=== PATIENT | female | born 1955 | race Caucasian/White ===

== ENCOUNTER → 2020-07-04 05:00 | Outpatient (REF) | payer MEDICARE, MEDICAID, SELFPAY ==
[2020-07-04 07:42] LABS: Hematocrit 35.3 % (37-47); Hemoglobin 11.1 g/dL (12.0-15.0); Mean Corp Hgb Conc 31.4 g/dL (32-36); Mean Corpuscular Hgb 33.3 pg (27.0-32.0); Mean Platelet Vol. 9.8 fl (6.2-12.0); Platelet Count 280 K/mm3 (150-450); RBC Distribution Width CV 13.2 % (11.6-14.6); RBC Distribution Width SD 51.6 fl (35.1-43.9); Red Blood Count 3.33 M/mm3 (4.2-5.4); White Blood Count 4.5 K/mm3 (4.4-11.0)
[2020-07-04 08:11] LABS: ALB/GLOB Ratio 0.9 RATIO (0.9-2.4); AST(SGOT) 15 U/L (15-37); Alanine Aminotransfer ALT/SGPT 26 U/L (13-56); Albumin, Serum 3.1 g/dL (3.2-5.0); Alkaline Phosphatase 56 U/L (45-117); Anion Gap 5 (5-15); BUN 16 mg/dL (7-18); BUN/Creat Ratio 21.7 RATIO (10-20); Bilirubin, Direct 0.06 mg/dL (0.00-0.30); Calcium,Total 9.1 mg/dL (8.5-10.1); Chloride 113 mmol/L (98-107); Cholesterol 187 mg/dL (200); Creatinine, Serum 0.74 mg/dL (0.55-1.02); EST Glomerular Filtration Rate 85 mL/min (>60); Est Glom Filt Rate - Afr Amer 103 mL/min (>60); Globulin 3.4 g/dL (2.2-4.2); Glucose 77 mg/dL (74-106); High Density Lipoprotein 67 mg/dL; Lipase 191 U/L (73-393); Protein, Total 6.5 g/dL (6.4-8.2); Sodium Level 142 mmol/L (136-145); Thyroid Stim Hormone (TSH) 1.45 uIU/mL (0.358-3.74); Triglycerides 96 mg/dL; Very Low Density Lipoprotein 19 mg/dL (5-40)
[2020-07-05 16:08] LABS: Endomysial Antibody IgA Negative (Negative)
[2020-07-05 20:00] LABS: Immunoglobulin A 204 mg/dL (87-352); t-Transglutaminase IgA <2 U/mL (0-3)
== END ==
LOC: OLS.ACW100 05:00
PROVIDERS: Visit Provider Family Medicine
DX: G35 Multiple sclerosis (principal); R41.82 Altered mental status, unspecified; M62.81 Muscle weakness (generalized); R26.81 Unsteadiness on feet; E03.9 Hypothyroidism, unspecified; F25.0 Schizoaffective disorder, bipolar type; R19.7 Diarrhea, unspecified
CPT/HCPCS: 36415; 80053; 80061; 82248; 82274; 82784; 83516; 83630; 83690; 84443; 85027; 86255; 87177; 87209; 87493; 87506

== ENCOUNTER → 2020-08-17 10:56 | Outpatient (REF) | payer MEDICARE, MEDICAID, SELFPAY | LOC: OLS.ACW100 10:56 | PROVIDERS: Visit Provider Family Medicine | DX: Z03.818 Encounter for observation for suspected exposure to other biological agents ruled out (principal) | CPT/HCPCS: 87635; U0003 ==

== ENCOUNTER → 2020-08-23 12:03 | Outpatient (REF) | payer MEDICARE, MEDICAID, SELFPAY | LOC: OLS.ACW100 12:03 | PROVIDERS: Referring Provider Family Medicine; Visit Provider Family Medicine | DX: Z03.818 Encounter for observation for suspected exposure to other biological agents ruled out (principal) | CPT/HCPCS: 87635; U0003 ==

== ENCOUNTER → 2020-09-10 05:00 | Outpatient (REF) | payer MEDICARE, MEDICAID, SELFPAY | LOC: OLS.ACW100 05:00 | PROVIDERS: Referring Provider Family Medicine; Visit Provider Family Medicine | DX: Z03.818 Encounter for observation for suspected exposure to other biological agents ruled out (principal); G35 Multiple sclerosis; R41.82 Altered mental status, unspecified; M62.81 Muscle weakness (generalized); R26.81 Unsteadiness on feet; E03.9 Hypothyroidism, unspecified; F25.0 Schizoaffective disorder, bipolar type | CPT/HCPCS: 87635; U0003 ==

== ENCOUNTER → 2020-10-10 13:34 | Outpatient (REF) | payer MEDICARE, MEDICAID, SELFPAY | LOC: OLS.ACW100 13:34 | PROVIDERS: Referring Provider Family Medicine; Visit Provider Family Medicine | DX: Z03.818 Encounter for observation for suspected exposure to other biological agents ruled out (principal) | CPT/HCPCS: 87635; U0003 ==

== ENCOUNTER → 2020-11-09 05:00 | Outpatient (REF) | payer MEDICARE, MEDICAID, SELFPAY | LOC: OLS.ACW100 05:00 | PROVIDERS: Visit Provider Family Medicine | DX: G35 Multiple sclerosis (principal); U07.1 COVID-19; R41.82 Altered mental status, unspecified; M62.81 Muscle weakness (generalized); R26.81 Unsteadiness on feet; R41.841 Cognitive communication deficit | CPT/HCPCS: 36415; 80178 ==

== ENCOUNTER → 2020-12-31 05:00 | Outpatient (REF) | payer MEDICARE, MEDICAID, SELFPAY ==
[2020-12-31 08:28] LABS: Cholesterol 201 mg/dL (200); High Density Lipoprotein 65 mg/dL; Triglycerides 114 mg/dL; Very Low Density Lipoprotein 23 mg/dL (5-40)
== END ==
LOC: OLS.ACW100 05:00
PROVIDERS: Referring Provider Family Medicine; Visit Provider Family Medicine
DX: G35 Multiple sclerosis (principal); R41.82 Altered mental status, unspecified; M62.81 Muscle weakness (generalized); R26.81 Unsteadiness on feet; R41.841 Cognitive communication deficit; R27.9 Unspecified lack of coordination; Z13.220 Encounter for screening for lipoid disorders
CPT/HCPCS: 36415; 80061

== ENCOUNTER → 2021-02-07 05:00 | Outpatient (REF) | payer MEDICARE, MEDICAID, SELFPAY | LOC: OLS.ACW100 05:00 | PROVIDERS: Referring Provider Family Medicine; Visit Provider Family Medicine | DX: G35 Multiple sclerosis (principal); U07.1 COVID-19; R41.82 Altered mental status, unspecified; M62.81 Muscle weakness (generalized); R26.81 Unsteadiness on feet; R41.841 Cognitive communication deficit | CPT/HCPCS: 36415; 80178 ==

== ENCOUNTER → 2021-04-17 05:00 | Outpatient (REF) | payer MEDICARE, MEDICAID, SELFPAY ==
[2021-04-17 08:09] LABS: Hematocrit 41.5 % (37-47); Hemoglobin 12.9 g/dL (12.0-15.0); Mean Corp Hgb Conc 31.1 g/dL (32-36); Mean Corpuscular Hgb 30.9 pg (27.0-32.0); Mean Corpuscular Volume 99.3 fL (81-99); Mean Platelet Vol. 11.4 fl (6.2-12.0); Platelet Count 201 K/mm3 (150-450); RBC Distribution Width CV 13.2 % (11.6-14.6); RBC Distribution Width SD 48.1 fl (35.1-43.9); Red Blood Count 4.18 M/mm3 (4.2-5.4); White Blood Count 7.6 K/mm3 (4.4-11.0)
[2021-04-17 08:23] LABS: AST(SGOT) 35 U/L (15-37); Alanine Aminotransfer ALT/SGPT 52 U/L (13-56); Albumin, Serum 3.3 g/dL (3.2-5.0); Alkaline Phosphatase 88 U/L (45-117); Anion Gap 4 (5-15); BUN 15 mg/dL (7-18); BUN/Creat Ratio 14.7 RATIO (10-20); Bilirubin, Direct 0.14 mg/dL (0.00-0.30); Chloride 108 mmol/L (98-107); Creatinine, Serum 1.02 mg/dL (0.55-1.02); EST Glomerular Filtration Rate 58 mL/min (>60); Est Glom Filt Rate - Afr Amer 70 mL/min (>60); Glucose 73 mg/dL (74-106); Potassium 4.3 mmol/L (3.5-5.1); Protein, Total 7.3 g/dL (6.4-8.2); Sodium Level 141 mmol/L (136-145)
== END ==
LOC: OLS.ACW100 05:00
PROVIDERS: Visit Provider Family Medicine
DX: G35 Multiple sclerosis (principal); R41.82 Altered mental status, unspecified; M62.81 Muscle weakness (generalized); R26.81 Unsteadiness on feet; R41.841 Cognitive communication deficit; R27.9 Unspecified lack of coordination
CPT/HCPCS: 36415; 80048; 80076; 85027

== ENCOUNTER → 2021-05-09 05:00 | Outpatient (REF) | payer MEDICARE, MEDICAID, SELFPAY | LOC: OLS.ACW100 05:00 | PROVIDERS: Referring Provider Family Medicine; Visit Provider Family Medicine | DX: G35 Multiple sclerosis (principal); U07.1 COVID-19; R41.82 Altered mental status, unspecified; M62.81 Muscle weakness (generalized); R26.81 Unsteadiness on feet; R41.841 Cognitive communication deficit | CPT/HCPCS: 36415; 80178 ==

== ENCOUNTER → 2021-06-04 19:30 | Outpatient (REF) | payer MEDICARE, MEDICAID, SELFPAY ==
[2021-06-04 20:40] LABS: Color, Urine Yellow (Yellow); Glucose, Dipstick Normal (Normal); Ketone-Dipstick Negative (Negative); Leukocyte Esterase-Dipstick 500 /ul (Negative); Nitrite-Dipstick Positive (Negative); Occult Blood-Urine 25 /ul (Negative); Protein-Dipstick 15 mg/dl (Negative); Urine Bilirubin Dipstick Negative (Negative); Urine Clarity Sl. Cloudy (Clear); Urine Urobilinogen Normal (Normal); Urine pH 6.5 (5.0 - 8.0)
[2021-06-04 20:42] LABS: Hematocrit 43.9 % (37-47); Hemoglobin 13.6 g/dL (12.0-15.0); Mean Corpuscular Hgb 31.9 pg (27.0-32.0); Mean Corpuscular Volume 102.8 fL (81-99); Mean Platelet Vol. 11.3 fl (6.2-12.0); Platelet Count 282 K/mm3 (150-450); RBC Distribution Width CV 15.5 % (11.6-14.6); RBC Distribution Width SD 59.4 fl (35.1-43.9); Red Blood Count 4.27 M/mm3 (4.2-5.4); White Blood Count 9.9 K/mm3 (4.4-11.0)
[2021-06-04 20:48] LABS: Anion Gap 7 (5-15); BUN 36 mg/dL (7-18); BUN/Creat Ratio 25.2 RATIO (10-20); Calcium,Total 10.1 mg/dL (8.5-10.1); Chloride 122 mmol/L (98-107); Creatinine, Serum 1.43 mg/dL (0.55-1.02); EST Glomerular Filtration Rate 39 mL/min (>60); Est Glom Filt Rate - Afr Amer 48 mL/min (>60); Glucose 210 mg/dL (74-106); Potassium 3.1 mmol/L (3.5-5.1); Sodium Level 153 mmol/L (136-145)
== END ==
LOC: OLS.ACW100 19:30
PROVIDERS: Visit Provider Family Medicine
DX: R41.82 Altered mental status, unspecified (principal); G35 Multiple sclerosis; M62.81 Muscle weakness (generalized); R26.81 Unsteadiness on feet; R41.841 Cognitive communication deficit; R27.9 Unspecified lack of coordination
CPT/HCPCS: 36415; 80048; 80178; 81002; 85027; 87077; 87086; 87088; 87186

== ENCOUNTER → 2021-06-06 05:00 | Outpatient (REF) | payer MEDICARE, MEDICAID, SELFPAY | LOC: OLS.ACW100 05:00 | PROVIDERS: Visit Provider Family Medicine | DX: G35 Multiple sclerosis (principal); R41.82 Altered mental status, unspecified; M62.81 Muscle weakness (generalized); R26.81 Unsteadiness on feet; R41.841 Cognitive communication deficit; R27.9 Unspecified lack of coordination | CPT/HCPCS: 36415; 80178 ==

== ENCOUNTER → 2021-06-08 08:00 | Outpatient (REF) | payer MEDICARE, MEDICAID, SELFPAY ==
[2021-06-08 08:55] LABS: Anion Gap 4 (5-15); BUN 23 mg/dL (7-18); BUN/Creat Ratio 18.3 RATIO (10-20); Calcium,Total 9.8 mg/dL (8.5-10.1); Creatinine, Serum 1.26 mg/dL (0.55-1.02); EST Glomerular Filtration Rate 46 mL/min (>60); Est Glom Filt Rate - Afr Amer 55 mL/min (>60); Glucose 143 mg/dL (74-106); Potassium 3.9 mmol/L (3.5-5.1)
[2021-06-08 10:16] LABS: Sodium Level 162 mmol/L (136-145)
[2021-06-08 10:17] LABS: Chloride 130 mmol/L (98-107)
== END ==
LOC: OLS.ACW200 08:00
PROVIDERS: Visit Provider Family Medicine
DX: G35 Multiple sclerosis (principal); R41.82 Altered mental status, unspecified; M62.81 Muscle weakness (generalized); R26.81 Unsteadiness on feet; R41.841 Cognitive communication deficit; R27.9 Unspecified lack of coordination; F25.0 Schizoaffective disorder, bipolar type
CPT/HCPCS: 36415; 80048; 80178

== ENCOUNTER → 2021-06-10 05:00 | Outpatient (REF) | payer MEDICARE, MEDICAID, SELFPAY ==
[2021-06-10 08:55] LABS: Anion Gap 5 (5-15); BUN 9 mg/dL (7-18); BUN/Creat Ratio 8.9 RATIO (10-20); Chloride 129 mmol/L (98-107); Creatinine, Serum 1.01 mg/dL (0.55-1.02); EST Glomerular Filtration Rate 59 mL/min (>60); Est Glom Filt Rate - Afr Amer 71 mL/min (>60); Glucose 100 mg/dL (74-106); Potassium 3.3 mmol/L (3.5-5.1); Sodium Level 158 mmol/L (136-145)
[2021-06-10 09:18] LABS: Lithium < 0.20 mmol/L (0.60-1.20)
== END ==
LOC: OLS.ACW200 05:00
PROVIDERS: Visit Provider Family Medicine
DX: G35 Multiple sclerosis (principal); F25.0 Schizoaffective disorder, bipolar type; E03.9 Hypothyroidism, unspecified
CPT/HCPCS: 36415; 80048; 80178

== ENCOUNTER → 2021-07-03 05:00 | Outpatient (REF) | payer MEDICARE, MEDICAID, SELFPAY ==
[2021-07-03 09:28] LABS: Cholesterol 124 mg/dL (200); High Density Lipoprotein 61 mg/dL; Triglycerides 101 mg/dL; Very Low Density Lipoprotein 20 mg/dL (5-40)
== END ==
LOC: OLS.ACW100 05:00
PROVIDERS: Visit Provider Family Medicine
DX: E78.00 Pure hypercholesterolemia, unspecified (principal); G35 Multiple sclerosis; R41.82 Altered mental status, unspecified; M62.81 Muscle weakness (generalized); R26.81 Unsteadiness on feet; R41.841 Cognitive communication deficit; R27.9 Unspecified lack of coordination
CPT/HCPCS: 36415; 80061

== ENCOUNTER → 2021-09-24 05:00 | Outpatient (REF) | payer MEDICARE, MEDICAID, SELFPAY ==
[2021-09-24 09:01] LABS: Hematocrit 33.3 % (37-47); Hemoglobin 10.4 g/dL (12.0-15.0); Mean Corp Hgb Conc 31.2 g/dL (32-36); Mean Corpuscular Hgb 30.1 pg (27.0-32.0); Mean Corpuscular Volume 96.2 fL (81-99); Mean Platelet Vol. 10.6 fl (6.2-12.0); Platelet Count 266 K/mm3 (150-450); RBC Distribution Width CV 13.8 % (11.6-14.6); RBC Distribution Width SD 48.9 fl (35.1-43.9); Red Blood Count 3.46 M/mm3 (4.2-5.4); White Blood Count 4.2 K/mm3 (4.4-11.0)
[2021-09-24 09:26] LABS: ALB/GLOB Ratio 0.5 RATIO (0.9-2.4); AST(SGOT) 22 U/L (15-37); Alanine Aminotransfer ALT/SGPT 32 U/L (13-56); Albumin, Serum 2.4 g/dL (3.2-5.0); Alkaline Phosphatase 63 U/L (45-117); Anion Gap 7 (5-15); BUN 16 mg/dL (7-18); BUN/Creat Ratio 17.5 RATIO (10-20); Calcium,Total 9.2 mg/dL (8.5-10.1); Chloride 110 mmol/L (98-107); Cholesterol 112 mg/dL (200); Creatinine, Serum 0.92 mg/dL (0.55-1.02); EST Glomerular Filtration Rate 66 mL/min (>60); Est Glom Filt Rate - Afr Amer 80 mL/min (>60); Globulin 4.4 g/dL (2.2-4.2); Glucose 116 mg/dL (74-106); High Density Lipoprotein 66 mg/dL; Magnesium 2.1 mg/dL (1.6-2.6); Potassium 3.4 mmol/L (3.5-5.1); Protein, Total 6.8 g/dL (6.4-8.2); Sodium Level 142 mmol/L (136-145); Thyroid Stim Hormone (TSH) 0.77 uIU/mL (0.358-3.74); Triglycerides 69 mg/dL; Very Low Density Lipoprotein 14 mg/dL (5-40)
[2021-09-24 09:29] LABS: Vitamin D,25 Hydroxy 54.5 ng/mL
== END ==
LOC: OLS.ACW100 05:00
PROVIDERS: Visit Provider Family Medicine
DX: G35 Multiple sclerosis (principal); R41.82 Altered mental status, unspecified; M62.81 Muscle weakness (generalized); R26.81 Unsteadiness on feet; R41.841 Cognitive communication deficit; E55.9 Vitamin D deficiency, unspecified; E03.9 Hypothyroidism, unspecified; R27.9 Unspecified lack of coordination
CPT/HCPCS: 36415; 80053; 80061; 82306; 83735; 84443; 85027

== ENCOUNTER → 2021-12-31 | Outpatient (REF) | payer MEDICARE, MEDICAID, SELFPAY ==
[2021-12-31 07:16] LABS: Cholesterol 121 mg/dL (200); High Density Lipoprotein 74 mg/dL; Triglycerides 80 mg/dL; Very Low Density Lipoprotein 16 mg/dL (5-40)
== END | disposition home or self-care (01) ==
LOC: OLS.ACW100 05:00
PROVIDERS: Visit Provider Family Medicine
DX: G35 Multiple sclerosis (principal); R53.1 Weakness; M62.81 Muscle weakness (generalized); R26.81 Unsteadiness on feet; R41.841 Cognitive communication deficit; R27.9 Unspecified lack of coordination
CPT/HCPCS: 36415; 80061

== ENCOUNTER → 2022-03-13 | Outpatient (REF) | payer MEDICARE, MEDICAID, SELFPAY ==
[2022-03-13 09:13] LABS: Hematocrit 34.6 % (37-47); Hemoglobin 10.7 g/dL (12.0-15.0); Mean Corp Hgb Conc 30.9 g/dL (32-36); Mean Corpuscular Hgb 30.3 pg (27.0-32.0); Mean Platelet Vol. 10.6 fl (6.2-12.0); Platelet Count 249 K/mm3 (150-450); RBC Distribution Width CV 15.2 % (11.6-14.6); RBC Distribution Width SD 54.4 fl (35.1-43.9); Red Blood Count 3.53 M/mm3 (4.2-5.4)
[2022-03-13 09:45] LABS: ALB/GLOB Ratio 0.7 RATIO (0.9-2.4); AST(SGOT) 19 U/L (15-37); Alanine Aminotransfer ALT/SGPT 38 U/L (13-56); Albumin, Serum 2.9 g/dL (3.2-5.0); Alkaline Phosphatase 70 U/L (45-117); Anion Gap 6 (5-15); BUN 16 mg/dL (7-18); BUN/Creat Ratio 14.7 RATIO (10-20); Chloride 112 mmol/L (98-107); Cholesterol 123 mg/dL (200); Creatinine, Serum 1.09 mg/dL (0.55-1.02); EST Glomerular Filtration Rate 54 mL/min (>60); Est Glom Filt Rate - Afr Amer 65 mL/min (>60); Globulin 4.1 g/dL (2.2-4.2); Glucose 80 mg/dL (74-106); High Density Lipoprotein 72 mg/dL; Potassium 4.2 mmol/L (3.5-5.1); Sodium Level 144 mmol/L (136-145); Thyroid Stim Hormone (TSH) 1.33 uIU/mL (0.358-3.74); Triglycerides 75 mg/dL; Very Low Density Lipoprotein 15 mg/dL (5-40)
== END | disposition home or self-care (01) ==
LOC: OLS.ACW100 05:00
PROVIDERS: Referring Provider Family Medicine; Visit Provider Family Medicine
DX: G35 Multiple sclerosis (principal); R41.82 Altered mental status, unspecified; M62.81 Muscle weakness (generalized); R26.81 Unsteadiness on feet; R41.841 Cognitive communication deficit; R27.9 Unspecified lack of coordination
CPT/HCPCS: 36415; 80053; 80061; 84443; 85027

== ENCOUNTER → 2022-07-03 | Outpatient (REF) | payer MEDICARE, MEDICAID, SELFPAY ==
[2022-07-03 10:23] LABS: Cholesterol 143 mg/dL (200); High Density Lipoprotein 78 mg/dL; Triglycerides 113 mg/dL; Very Low Density Lipoprotein 23 mg/dL (5-40)
== END ==
LOC: OLS.ACW100 05:00
PROVIDERS: Visit Provider Family Medicine
DX: E78.00 Pure hypercholesterolemia, unspecified (principal); G35 Multiple sclerosis; R53.1 Weakness; R41.82 Altered mental status, unspecified; M62.81 Muscle weakness (generalized); R26.81 Unsteadiness on feet; R41.841 Cognitive communication deficit; R27.9 Unspecified lack of coordination
CPT/HCPCS: 36415; 80061

== ENCOUNTER → 2022-08-11 | Outpatient (REF) | payer MEDICARE, MEDICAID, SELFPAY ==
[2022-08-16 08:12] LABS: HEPATITIS B SURFACE AG Negative (Negative); Hep C Antibodies <0.1 s/co ratio (0.0-0.9); Hepatitis A IgM Antibody Negative (Negative); Hepatitis B Core AB IgM Negative (Negative)
[2022-08-16 09:30] LABS: V-Zoster IgG (Immunity) 1065 index (Immune >165)
== END ==
LOC: OLS.ACW100 05:00
PROVIDERS: Visit Provider Family Medicine
DX: G35 Multiple sclerosis (principal); R53.1 Weakness; R41.82 Altered mental status, unspecified; M62.81 Muscle weakness (generalized); R26.81 Unsteadiness on feet; R41.841 Cognitive communication deficit; R27.9 Unspecified lack of coordination
CPT/HCPCS: 36415; 80074; 86787; 87798

== ENCOUNTER → 2022-10-02 | Outpatient (REF) | payer MEDICARE, MEDICAID, SELFPAY ==
[2022-10-02 10:04] LABS: Absolute Lymphocyte Count 1.73 X10^3/uL (0.83-4.51); Absolute Neutrophil Count 2.6 X10^3/uL (2.0-7.7); Basophil# 0.04 X10^3/uL; Basophil% 0.8 % (0-1); Eosinophils% 2.1 % (0-5); Hematocrit 39.3 % (37-47); Hemoglobin 11.9 g/dL (12.0-15.0); Lymphocyte # 1.73 X10^3/ul (0.83-4.51); Lymphocyte % 35.8 % (19-41); Mean Corp Hgb Conc 30.3 g/dL (32-36); Mean Corpuscular Hgb 30.4 pg (27.0-32.0); Mean Corpuscular Volume 100.3 fL (81-99); Mean Platelet Vol. 11.3 fl (6.2-12.0); Monocyte# 0.35 X10^3/uL; Monocyte% 7.2 % (0-10); NRBC Flagged by Analyzer 0.4 % (0-5); Neutrophil # 2.58 X10^3/uL (2.7-7.7); Neutrophil % 53.5 % (47-70); Platelet Count 231 K/mm3 (150-450); RBC Distribution Width CV 15.5 % (11.6-14.6); RBC Distribution Width SD 57.2 fl (35.1-43.9); Red Blood Count 3.92 M/mm3 (4.2-5.4); White Blood Count 4.8 K/mm3 (4.4-11.0)
[2022-10-02 10:16] LABS: ALB/GLOB Ratio 0.7 RATIO (0.9-2.4); AST(SGOT) 20 U/L (15-37); Alanine Aminotransfer ALT/SGPT 39 U/L (13-56); Alkaline Phosphatase 74 U/L (45-117); Anion Gap 6 (5-15); BUN 20 mg/dL (7-18); BUN/Creat Ratio 16.5 RATIO (10-20); Calcium,Total 9.4 mg/dL (8.5-10.1); Chloride 108 mmol/L (98-107); Creatinine, Serum 1.21 mg/dL (0.55-1.02); EST Glomerular Filtration Rate 48 mL/min (>60); Est Glom Filt Rate - Afr Amer 57 mL/min (>60); Globulin 4.3 g/dL (2.2-4.2); Glucose 68 mg/dL (74-106); Potassium 4.6 mmol/L (3.5-5.1); Protein, Total 7.3 g/dL (6.4-8.2); Sodium Level 143 mmol/L (136-145)
== END ==
LOC: OLS.ACW100 06:50
PROVIDERS: Visit Provider Family Medicine
DX: G35 Multiple sclerosis (principal); R53.1 Weakness; R41.82 Altered mental status, unspecified; M62.81 Muscle weakness (generalized); R26.81 Unsteadiness on feet; R41.841 Cognitive communication deficit; R27.9 Unspecified lack of coordination
CPT/HCPCS: 36415; 80053; 85025

== ENCOUNTER → 2022-12-08 | Outpatient (REF) | payer MEDICARE, MEDICAID, SELFPAY ==
[2022-12-08 09:14] LABS: Hematocrit 39.3 % (37-47); Hemoglobin 11.8 g/dL (12.0-15.0); Mean Corpuscular Hgb 31.8 pg (27.0-32.0); Mean Corpuscular Volume 105.9 fL (81-99); Mean Platelet Vol. 10.5 fl (6.2-12.0); Platelet Count 226 K/mm3 (150-450); RBC Distribution Width CV 15.1 % (11.6-14.6); RBC Distribution Width SD 58.8 fl (35.1-43.9); Red Blood Count 3.71 M/mm3 (4.2-5.4); White Blood Count 4.9 K/mm3 (4.4-11.0)
[2022-12-08 09:43] LABS: Vitamin D,25 Hydroxy 41.5 ng/mL
[2022-12-08 10:19] LABS: Anion Gap 11 (5-15); BUN 17 mg/dL (7-18); BUN/Creat Ratio 14.9 RATIO (10-20); Calcium,Total 9.2 mg/dL (8.5-10.1); Chloride 113 mmol/L (98-107); Cholesterol 125 mg/dL (200); Creatinine, Serum 1.14 mg/dL (0.55-1.02); EST Glomerular Filtration Rate 51 mL/min (>60); Est Glom Filt Rate - Afr Amer 62 mL/min (>60); Glucose 62 mg/dL (74-106); High Density Lipoprotein 65 mg/dL; Potassium 4.7 mmol/L (3.5-5.1); Sodium Level 143 mmol/L (136-145); Thyroid Stim Hormone (TSH) 4.14 uIU/mL (0.358-3.74); Triglycerides 153 mg/dL; Very Low Density Lipoprotein 31 mg/dL (5-40)
[2022-12-08 10:29] LABS: Hemoglobin A1c 5.9 % (3.8-5.6)
== END | disposition home or self-care (01) ==
LOC: OLS.ACW100 05:00
PROVIDERS: Visit Provider Family Medicine
DX: G35 Multiple sclerosis (principal); R53.1 Weakness; R41.82 Altered mental status, unspecified; M62.81 Muscle weakness (generalized); R26.81 Unsteadiness on feet; R41.841 Cognitive communication deficit; R27.9 Unspecified lack of coordination
CPT/HCPCS: 36415; 80048; 80061; 82306; 83036; 84443; 85027

== ENCOUNTER → 2022-12-18 | Outpatient (REF) | payer MEDICARE, MEDICAID, SELFPAY ==
[2022-12-18 08:48] LABS: Absolute Lymphocyte Count 1.38 X10^3/uL (0.83-4.51); Absolute Neutrophil Count 2.9 X10^3/uL (2.0-7.7); Basophil# 0.03 X10^3/uL; Basophil% 0.6 % (0-1); Eosinophil# 0.15 X10^3/uL; Hematocrit 35.4 % (37-47); Hemoglobin 10.9 g/dL (12.0-15.0); Lymphocyte # 1.38 X10^3/ul (0.83-4.51); Lymphocyte % 27.9 % (19-41); Mean Corp Hgb Conc 30.8 g/dL (32-36); Mean Corpuscular Hgb 31.1 pg (27.0-32.0); Mean Corpuscular Volume 100.9 fL (81-99); Mean Platelet Vol. 10.3 fl (6.2-12.0); Monocyte# 0.49 X10^3/uL; Monocyte% 9.9 % (0-10); NRBC Flagged by Analyzer 0 % (0-5); Neutrophil # 2.87 X10^3/uL (2.7-7.7); Platelet Count 267 K/mm3 (150-450); RBC Distribution Width CV 14.7 % (11.6-14.6); RBC Distribution Width SD 54.7 fl (35.1-43.9); Red Blood Count 3.51 M/mm3 (4.2-5.4)
[2022-12-18 08:53] LABS: Valproic Acid (Depakene) Level 27 ug/mL (50-100)
[2022-12-18 09:02] LABS: ALB/GLOB Ratio 0.7 RATIO (0.9-2.4); AST(SGOT) 16 U/L (15-37); Alanine Aminotransfer ALT/SGPT 27 U/L (13-56); Albumin, Serum 2.6 g/dL (3.2-5.0); Alkaline Phosphatase 58 U/L (45-117); Anion Gap 7 (5-15); BUN 24 mg/dL (7-18); BUN/Creat Ratio 20.2 RATIO (10-20); Calcium,Total 8.9 mg/dL (8.5-10.1); Chloride 108 mmol/L (98-107); Cholesterol 122 mg/dL (200); Creatinine, Serum 1.19 mg/dL (0.55-1.02); EST Glomerular Filtration Rate 48 mL/min (>60); Est Glom Filt Rate - Afr Amer 59 mL/min (>60); Globulin 3.8 g/dL (2.2-4.2); Glucose 74 mg/dL (74-106); High Density Lipoprotein 68 mg/dL; Potassium 4.2 mmol/L (3.5-5.1); Protein, Total 6.4 g/dL (6.4-8.2); Sodium Level 143 mmol/L (136-145); Triglycerides 73 mg/dL; Very Low Density Lipoprotein 15 mg/dL (5-40)
[2022-12-18 09:19] LABS: Hemoglobin A1c 5.8 % (3.8-5.6)
[2022-12-19 04:07] LABS: Immunoglobulin A 399 mg/dL (87-352); Immunoglobulin G 1164 mg/dL (586-1602)
[2022-12-19 17:21] LABS: Immunoglobulin M 53 mg/dL (26-217)
== END ==
LOC: OLS.ACW100 05:00
PROVIDERS: Visit Provider Family Medicine
DX: G35 Multiple sclerosis (principal); R41.82 Altered mental status, unspecified; M62.81 Muscle weakness (generalized); R26.81 Unsteadiness on feet; R41.841 Cognitive communication deficit; R27.9 Unspecified lack of coordination; Z79.899 Other long term (current) drug therapy
CPT/HCPCS: 36415; 80053; 80061; 80164; 82784; 83036; 85025

== ENCOUNTER → 2023-01-12 | Outpatient (REF) | payer MEDICARE, MEDICAID, SELFPAY ==
[2023-01-12 09:10] LABS: Thyroid Stim Hormone (TSH) 3.69 uIU/mL (0.358-3.74)
== END ==
LOC: OLS.ACW100 04:00
PROVIDERS: Referring Provider Family Medicine; Visit Provider Family Medicine
DX: G35 Multiple sclerosis (principal); R53.1 Weakness; R41.82 Altered mental status, unspecified; M62.81 Muscle weakness (generalized); R26.81 Unsteadiness on feet; R41.841 Cognitive communication deficit; R27.9 Unspecified lack of coordination; Z79.899 Other long term (current) drug therapy
CPT/HCPCS: 36415; 84443

== ENCOUNTER → 2023-03-02 | Outpatient (REF) | payer MEDICARE, MEDICAID, SELFPAY ==
[2023-03-02 09:13] LABS: Valproic Acid (Depakene) Level 38 ug/mL (50-100)
== END ==
LOC: OLS.ACW100 05:00
PROVIDERS: Visit Provider Family Medicine
DX: G35 Multiple sclerosis (principal); R53.1 Weakness; R41.82 Altered mental status, unspecified; M62.81 Muscle weakness (generalized); R26.81 Unsteadiness on feet; R41.841 Cognitive communication deficit; R27.9 Unspecified lack of coordination
CPT/HCPCS: 36415; 80164

== ENCOUNTER → 2023-04-17 | Outpatient (REF) | payer MEDICARE, MEDICAID, SELFPAY ==
[2023-04-17 08:26] LABS: Creatinine, Serum 1.28 mg/dL (0.55-1.02); EST Glomerular Filtration Rate 44 mL/min (>60); Est Glom Filt Rate - Afr Amer 54 mL/min (>60)
== END ==
LOC: OLS.ACW100 05:00
PROVIDERS: Visit Provider Family Medicine
DX: G35 Multiple sclerosis (principal); R53.1 Weakness; R41.82 Altered mental status, unspecified; M62.81 Muscle weakness (generalized); R26.81 Unsteadiness on feet; R41.841 Cognitive communication deficit; R27.9 Unspecified lack of coordination
CPT/HCPCS: 36415; 82565

== ENCOUNTER → 2023-05-27 | Outpatient (REF) | payer MEDICARE, MEDICAID, SELFPAY ==
[2023-05-27 09:10] LABS: Hematocrit 39.4 % (37-47); Hemoglobin 12.5 g/dL (12.0-15.0); Mean Corp Hgb Conc 31.7 g/dL (32-36); Mean Corpuscular Hgb 32.1 pg (27.0-32.0); Mean Platelet Vol. 10.7 fl (6.2-12.0); Platelet Count 242 K/mm3 (150-450); RBC Distribution Width CV 14.5 % (11.6-14.6); RBC Distribution Width SD 53.5 fl (35.1-43.9)
[2023-05-27 09:34] LABS: ALB/GLOB Ratio 0.7 RATIO (0.9-2.4); AST(SGOT) 33 U/L (15-37); Alanine Aminotransfer ALT/SGPT 40 U/L (13-56); Albumin, Serum 3.2 g/dL (3.2-5.0); Alkaline Phosphatase 62 U/L (45-117); Anion Gap 4 (5-15); BUN 23 mg/dL (7-18); BUN/Creat Ratio 19.8 RATIO (10-20); Calcium,Total 9.3 mg/dL (8.5-10.1); Chloride 113 mmol/L (98-107); Creatinine, Serum 1.16 mg/dL (0.55-1.02); EST Glomerular Filtration Rate 50 mL/min (>60); Est Glom Filt Rate - Afr Amer 60 mL/min (>60); Globulin 4.3 g/dL (2.2-4.2); Glucose 67 mg/dL (74-106); Potassium 4.1 mmol/L (3.5-5.1); Protein, Total 7.5 g/dL (6.4-8.2); Sodium Level 143 mmol/L (136-145)
[2023-05-31 01:06] LABS: Immunoglobulin A 406 mg/dL (87-352); Immunoglobulin E 7 IU/mL (6-495); Immunoglobulin G 1286 mg/dL (586-1602); Immunoglobulin M 37 mg/dL (26-217)
== END ==
LOC: OLS.ACW100 05:00
PROVIDERS: Visit Provider Family Medicine
DX: G35 Multiple sclerosis (principal); R53.1 Weakness; R41.82 Altered mental status, unspecified; M62.81 Muscle weakness (generalized); R26.81 Unsteadiness on feet; R41.841 Cognitive communication deficit
CPT/HCPCS: 36415; 80053; 82784; 82785; 85027

== ENCOUNTER → 2023-06-02 | Outpatient (REF) | payer MEDICARE, MEDICAID, SELFPAY ==
[2023-06-02 10:34] LABS: Cholesterol 135 mg/dL (200); High Density Lipoprotein 63 mg/dL; Triglycerides 122 mg/dL; Very Low Density Lipoprotein 24 mg/dL (5-40)
[2023-06-02 10:53] LABS: Valproic Acid (Depakene) Level 53 ug/mL (50-100)
[2023-06-02 11:11] LABS: Hemoglobin A1c 5.9 % (3.8-5.6)
== END ==
LOC: OLS.ACW100 05:00
PROVIDERS: Visit Provider Family Medicine
DX: G35 Multiple sclerosis (principal); R53.1 Weakness; R41.82 Altered mental status, unspecified; M62.81 Muscle weakness (generalized); R26.81 Unsteadiness on feet; R41.841 Cognitive communication deficit; Z79.899 Other long term (current) drug therapy
CPT/HCPCS: 36415; 80061; 80164; 83036

== ENCOUNTER → 2023-06-04 | Outpatient (REF) | payer MEDICARE, MEDICAID, SELFPAY ==
[2023-06-04 09:55] LABS: Hematocrit 38.4 % (37-47); Hemoglobin 12.2 g/dL (12.0-15.0); Mean Corp Hgb Conc 31.8 g/dL (32-36); Mean Corpuscular Hgb 32.2 pg (27.0-32.0); Mean Corpuscular Volume 101.3 fL (81-99); Mean Platelet Vol. 10.8 fl (6.2-12.0); Platelet Count 271 K/mm3 (150-450); RBC Distribution Width CV 14.3 % (11.6-14.6); RBC Distribution Width SD 53.7 fl (35.1-43.9); Red Blood Count 3.79 M/mm3 (4.2-5.4); White Blood Count 4.3 K/mm3 (4.4-11.0)
[2023-06-04 10:04] LABS: Vitamin D,25 Hydroxy 42.4 ng/mL
[2023-06-04 10:11] LABS: ALB/GLOB Ratio 0.7 RATIO (0.9-2.4); AST(SGOT) 25 U/L (15-37); Alanine Aminotransfer ALT/SGPT 33 U/L (13-56); Alkaline Phosphatase 66 U/L (45-117); Anion Gap 7 (5-15); BUN 15 mg/dL (7-18); BUN/Creat Ratio 11.6 RATIO (10-20); Calcium,Total 9.4 mg/dL (8.5-10.1); Chloride 109 mmol/L (98-107); Cholesterol 120 mg/dL (200); Creatinine, Serum 1.29 mg/dL (0.55-1.02); EST Glomerular Filtration Rate 44 mL/min (>60); Est Glom Filt Rate - Afr Amer 53 mL/min (>60); Globulin 4.4 g/dL (2.2-4.2); Glucose 73 mg/dL (74-106); High Density Lipoprotein 66 mg/dL; Potassium 4.4 mmol/L (3.5-5.1); Protein, Total 7.4 g/dL (6.4-8.2); Sodium Level 144 mmol/L (136-145); Triglycerides 106 mg/dL; Very Low Density Lipoprotein 21 mg/dL (5-40)
[2023-06-04 10:18] LABS: Hemoglobin A1c 5.9 % (3.8-5.6)
== END ==
LOC: OLS.ACW100 05:00
PROVIDERS: Visit Provider Family Medicine
DX: E06.9 Thyroiditis, unspecified (principal); E55.9 Vitamin D deficiency, unspecified; J96.01 Acute respiratory failure with hypoxia; R41.841 Cognitive communication deficit; M62.81 Muscle weakness (generalized); I26.99 Other pulmonary embolism without acute cor pulmonale; Z79.899 Other long term (current) drug therapy
CPT/HCPCS: 36415; 80053; 80061; 82306; 83036; 84443; 85027

== ENCOUNTER → 2023-09-02 | Outpatient (REF) | payer MEDICARE, MEDICAID, SELFPAY ==
[2023-09-02 09:39] LABS: Valproic Acid (Depakene) Level 75 ug/mL (50-100)
[2023-09-04 05:09] LABS: T4 Total, Thyroxin 10.5 ug/dL (4.8-13.9); Thyroid Stim Hormone (TSH) 2.71 uIU/mL (0.358-3.74)
[2023-09-04 05:21] LABS: T3 Total - Triiodothyronine 1.41 ng/mL (0.6-1.81)
== END ==
LOC: OLS.ACW100 05:00
PROVIDERS: Visit Provider Family Medicine
DX: G35 Multiple sclerosis (principal); R53.1 Weakness; R41.82 Altered mental status, unspecified; M62.81 Muscle weakness (generalized); R26.81 Unsteadiness on feet; R41.841 Cognitive communication deficit; Z79.899 Other long term (current) drug therapy
CPT/HCPCS: 36415; 80164; 84436; 84443; 84480

== ENCOUNTER → 2023-11-25 | Outpatient (REF) | payer MEDICARE, MEDICAID, SELFPAY ==
--- OUTSIDE RECORDS SUMMARY | 2023-11-25 04:50 | XMS RPT_ITS | CCD ---
Author Name Unknown Address [address] [place] [address] Organization [facility] Care Team Providers Care Retail Sales Specialist Name Role Phone Kinjal REDD, George Callejas Primary Care Provid er Tania Kasper Attending Unavailable Shakila Flower Primary Care Unavailable PROVIDER, UNKNOWN Referring Unavailable Noble Hilton Attending Unavailable Shakila Flower Primary Care Unavailable PROVIDER, UNKNOWN Referring Unavailable NOBLE HILTON Attending Unavailable NOBLE HILTON Admitting Unavailable NOBLE HILTON Primary Care Unavailable NOBLE HILTON Attending Unavailable NOBLE HILTON Admitting Unavailable NOBLE HILTON Primary Care Unavailable Shakila Flower Primary Care Provider [phone] SHAKILA FLOWER Primary Care Unavailable NOBLE HILTON Attending Unavailable NOBLE HILTON Referring Unavailable SHAKILA FLOWER Primary Care Unavailable NOBLE HILTON Referring Unavailable NOBLE HILTON Attending Unavailable REJI JOYCE Attending Unavailable REJI JOYCE Admitting Unavailable SHAKILA FLOWER Primary Care Unavailable NOBLE HILTON Referring Unavailable NOBLE HILTON Attending Unavailable SHAKILA FLOWER Primary Care Unavailable NOBLE HILTON Referring Unavailable NOBLE HILTON Attending Unavailable SHAKILA FLOWER Primary Care Unavailable Medications Current Medications Medication Drug Class(es) Dates Sig (Normalized) Sig (Original) atorvastatin 20 mg oral tablet (14 sources) HMG-CoA Reductase Inhibitor Start: 05-06-2023 take 1 tablet by mouth at bedtime atorvastatin (Lipitor) 20 MG tablet Take 1 tablet by mouth before bedtime. Take with 40mg tab for 60mg total. 0 05/06/2023 Active Completed/Discontinued Medications Medication Drug Class(es) Dates Sig (Normalized) Sig (Original) gadobutrol (Gadavist) injection 10 mL (2 sources) Start: 05-18-2023 End: 05-18-2023 gadobutrol (Gadavist) injection 10 mL 5 ml sodium chloride 9 mg/ml injection (6 sources) Start: 05-08-2023 End: 05-08-2023 sodium chloride 0.9% (NS) flush 10 mL Problems Problem Classification Problem Date Documented Da te Episodic/Chronic Disorders of lipid metabolism (9 sources) Hyperlipidemia; Translations: [Hyperlipidemia, unspecified] Onset: 05-08-2023 05-08-2023 Chronic Mood disorders (1 source) Depressive disorder; Translations: [Depression, unspecified depression type] Chronic Multiple sclerosis (20 sources) Multiple sclerosis; Translations: [Multiple sclerosis] Onset: 11-04-2021 Chronic Other hereditary and degenerative nervous system conditions (2 sources) Degenerative disease of nervous system, unspecified; Translations: [Degenerative disease of nervous system, unspecified] Onset: 11-04-2021 Chronic Other nervous system disorders (2 sources) Other specified disorders of brain; Translations: [Other specified disorders of brain] Onset: 11-04-2021 Chronic Other screening for suspected conditions (not mental disorders or infectious disease) (2 sources) Encounter for screening for malignant neoplasm of colon; Translations: [Encounter for screening for malignant neoplasm of colon] Onset: 05-08-2023 Episodic Residual codes; unclassified (9 sources) Altered mental status; Translations: [Altered mental status, unspecified] Onset: 05-08-2023 05-08-2023 Episodic Results Test Name Value Interpretation Reference Range Facil ity Vital Signs Date Time Vital Sign Value Performing Clinician Faci lity 05-08-2023 14:32-0400 Diastolic blood pressure 97 mm[Hg] Reji Chisholm MD Work Phone: [facility] [employer] 05-08-2023 14:32-0400 Heart rate 76 /min Reji Chisholm MD Work Phone: [facility] [employer] 05-08-2023 14:32-0400 Respiratory rate 16 /min Reji Chisholm MD Work Phone: [facility] [employer] 05-08-2023 14:32-0400 SaO2% (BldA) [Mass fraction] 95 % Reji Chisholm MD Work Phone: [facility] [employer] 05-08-2023 14:32-0400 Systolic blood pressure 142 mm[Hg] Reji Chisholm MD Work Phone: [facility] [employer] 05-08-2023 14:19-0400 Body temperature 97.5 [degF] Reji Chisholm MD Work Phone: [facility] [employer] 05-08-2023 13:42-0400 Body height 157.5 cm Reji Chisholm MD Work Phone: [facility] [employer] 05-08-2023 13:42-0400 Body mass index (BMI) [Ratio] 45.73 kg/m2 Reji Chisholm MD Work Phone: [facility] [employer] 05-08-2023 13:42-0400 Body weight 113.4 kg Reji Chisholm MD Work Phone: [facility] [employer] 05-24-2022 19:24-0400 Diastolic blood pressure 92 mm[Hg] Sameer Mudrakola DO Work Phone: [facility] 05-24-2022 19:24-0400 Heart rate 86 /min Sameer Mudrakola DO Work Phone: [facility] 05-24-2022 19:24-0400 Respiratory rate 18 /min Sameer Mudrakola DO Work Phone: [facility] 05-24-2022 19:24-0400 SaO2% (BldA) [Mass fraction] 96 % Sameer Mudrakola DO Work Phone: [facility] 05-24-2022 19:24-0400 Systolic blood pressure 146 mm[Hg] Sameer Mudrakola DO Work Phone: [facility] 05-24-2022 11:07-0400 Body height 157.5 cm Sameer Mudrakola DO Work Phone: [facility] 05-24-2022 11:07-0400 Body mass index (BMI) [Ratio] 32.92 kg/m2 Sameer Mudrakola DO Work Phone: [facility] 05-24-2022 11:07-0400 Body temperature 98.4 [degF] Sameer Sherman DO Work Phone: [facility] 05-24-2022 11:07-0400 Body weight 81.65 kg Sameer Sherman DO Work Phone: [facility] Encounters Encounter Date Encounter Type Care Provider Facility Start: 05-18-2023 End: 05-19-2023 ambulatory NO[facility] Start: 05-18-2023 End: 05-18-2023 Subsequent hospital visit by physician Noble Hilton DO Work Phone: [facility] MRI Procedures Date Procedure Procedure Detail Performing Clinician Start: 05-08-2023 Colonoscopy eRji Chisholm MD Work Phone: Start: 05-24-2022 POCT COVID-19, ANTIGEN Unknown Provider Result Start: 05-24-2022 Assay of ethanol Addi Norris MD Work Phone: Start: 05-24-2022 Comprehensive metabo lic panel Addi Norris MD Work Phone: Start: 05-24-2022 Drug tst prsmv instr mnt chem analyzers pr date Addi Norris MD Work Phone: Start: 05-24-2022 Ecg routine ecg w/le ast 12 lds w/i&r Addi Norris MD Work Phone: Plan of Treatment Date Care Activity Detail Author Start: 05-08-2033 Screening for malign ant neoplasm of colon [facility] Start: 11-17-2027 DTaP/Tdap/Td vaccine (3 - Td or Tdap) DTaP/Tdap/Td vaccine (3 - Td or Tdap) [facility] Start: 11-17-2027 DTaP/Tdap/Td Vaccine s (2 - Td or Tdap) DTaP/Tdap/Td Vaccines (2 - Td or Tdap) [facility] Start: 07-03-2023 Influenza vaccination S [facility] Start: 05-18-2023 End: 05-18-2023 Patient encounter procedure [facility] Start: 05-08-2023 End: 05-08-2023 Admission to same day surgery center 05/08/2023 1:00 PM EDT - 05/08/2023 1:30 PM EDT Surgery [facility] [address] [place] [id number] Reji Joyce MD [address] [place] [address] COLONOSCOPY FOR LOW RISK SCREENING [G0121] [facility] [address] Immunizations Immunization Date Immunization Notes Care Provider Fa cility 11-28-2020 Pfizer SARS-CoV-2 Vaccination Noble Hilton DO Work Phone: [employer] 11-07-2020 Pfizer SARS-CoV-2 Vaccination Noblemichael Hilton DO Work Phone: [employer] 08-29-2019 influenza virus vacc ine, unspecified formulation Noblemichael Hilton DO Work Phone: [employer] Payers Date Payer Category Payer Medicare ANTHEM MEDICARE ADVANTAGE ANTHEM MEDIBLUE [id number] 2022-Present [address] [place] [address] Medicare HMO [id number] 2022 Medicare [id number] 2022 Medicaid [employer] MEDICAID UHC [employer] MEDICAID ONLY [id number] 2022-Present [address] [place] [address] Medicaid HMO [id number] 2021 Medicaid [id number] 2017 Medicare BS MEDICARE AN THEM MEDIBLUE ESSENTIAL/PLUS [id number] 2017-Present [address] [place] [address] [id number] 1959 Medicare [id number] 1959 Unknown [id number] 1957 Unknown [id number] 1957 Unknown [id number] 1957 Unknown [id number] 1957 Unknown [id number] Private Health Insurance Social History Date Type Detail Facility Start: 05-24-2022 Tobacco smoking stat [facility] Ex-smoker [facility] Work Phone: History of tobacco use Current smoker [facility] Work Phone: History of tobacco use Cigarette Smoker [facility] [employer] Work Phone: Start: 05-24-2022 End: 05-09-2023 Alcohol intake Ex-drinker (finding) [facility] Work Phone: Start: 05-24-2022 History SDOH Alcohol Comment former ETOH [facility] Work Phone: Start: 1955 Sex Assigned At Not on file [facility] [employer] Work Phone: Start: 05-14-2022 End: 05-18-2023 Exposure to SARS-CoV-2 (event) Not sure [employer] Work Phone: Start: 05-24-2022 End: 05-09-2023 History of Social function [facility] [employer] Start: 05-24-2022 End: 05-09-2023 Tobacco use panel [facility] Start: 04-28-2023 End: 05-08-2023 Exposure to SARS-CoV-2 (event) Unable to assess [facility] [employer] Clinical Notes 05-24-2022 to 05-08-2023 Discharge InstructionsPerioperative Nursing Note - Vicky Aparicio RN - 05/08/2023 1:54 PM EDTPerioperative Nursing Note - Vicky Aparicio RN - 05/08/2023 1:54 PM EDTDischarge InstructionsAttachments Note Date & Type Note Facility 05-08-2023 Note Patient: Janeen Diaz Procedure Summary Date: 05/08/23 Room / Location: [facility] [address] [facility] Gastroenterology Anesthesia Start: 1355 Anesthesia Stop: 141 Procedure: COLONOSCOPY FOR LOW RISK SCREENING Diagnosis: Encounter for screening for malignant neoplasm of colon (Encounter for screening for malignant neoplasm of colon [Z12.11]) Providers: Reji Chisholm MD Responsible Provider: Noble Lino MD Anesthesia Type: TIVA, MAC ASA Status: 3 Anesthesia Type: TIVA, MAC Vitals Value Taken Time BP 117/76 05/08/23 1419 Temp 36.4 ?C (97.5 ?F) 05/08/23 1419 Pulse 83 05/08/23 1419 Resp 16 05/08/23 1419 SpO2 99 % 05/08/23 1419 Anesthesia Post Evaluation Patient location during evaluation: PACU Patient participation: complete - patient participated Level of consciousness: confused Pain management: satisfactory to patient Airway patency: patent Dental Injury: no Cardiovascular status: acceptable, blood pressure returned to baseline and hemodynamically stable Respiratory status: acceptable and spontaneous ventilation Hydration status: euvolemic Nausea/Vomiting: controlled No notable events documented. Patient can be discharged once all PACU criteria has been met. [facility] 05-08-2023 Note Patient: Janeen Diaz Procedure Summary Date: 05/08/23 Room / Location: [facility] / [facility] Gastroenterology Anesthesia Start: 1354 Anesthesia Stop: 1413 Procedure: COLONOSCOPY FOR LOW RISK SCREENING Diagnosis: Encounter for screening for malignant neoplasm of colon (Encounter for screening for malignant neoplasm of colon [Z12.11]) Providers: Reji Chisholm MD Responsible Provider: Noble Lino MD Anesthesia Type: TIVA, MAC ASA Status: 3 Anesthesia Type: TIVA, MAC Vitals Value Taken Time BP 117/76 05/08/23 1419 Temp 36.4 ?C (97.5 ?F) 05/08/23 1419 Pulse 83 05/08/23 1419 Resp 16 05/08/23 1419 SpO2 99 % 05/08/23 1419 Anesthesia Post Evaluation Patient location during evaluation: PACU Patient participation: complete - patient participated Level of consciousness: confused Pain score: 0 Pain management: satisfactory to patient Multimodal analgesia pain management approach Airway patency: patent Two or more strategies used to mitigate risk of obstructive sleep apnea Cardiovascular status: acceptable and hemodynamically stable Respiratory status: acceptable and face mask Hydration status: acceptable No notable events documented. MIPS #430 PONV Patient did not receive an inhalational anesthetic (XX430) MIPS # 424 Perioperative Temperature Management Anesthesia time was less than 60 minutes (4256F) MIPS #477 Multimodal Pain Management Not emergent case Patient was not administered multimodal pain management (G2149) Patient reports no pain in PACU (G2149) MIPS #404 Anesthesiology Smoking Abstinence The patient is not a current smoker (e.g. cigarette, cigar, pipe, e-cigarette/vaping/marijuana) If no stop here (XX404) I completed my handoff to the receiving clinician during which we: 1. Identified the patient 2. Identified the responsible provider 3. Reviewed the pertinent medical history 4. Discussed the surgical course 5. Reviewed intra-op anesthesia management and issues during anesthesia 6. Set expectations for post-procedure period 7. Allowed opportunity for questions and acknowledgement of understanding. [facility] 05-08-2023 Note Patient: Janeen Diaz Procedure Information Date/Time: 05/08/23 1300 Procedure: COLONOSCOPY FOR LOW RISK SCREENING Location: [facility] / [facility] Gastroenterology Providers: Reji Chisholm MD EK05/2022 Sinus rhythm Normal Dana No ST or T wave changes Relevant Problems Cardio (+) HLD (hyperlipidemia) Neuro/Psych (+) MS (multiple sclerosis) (HCC) Other (+) Altered mental status Past Medical History: Past Medical History: No date: Altered mental status No date: Bipolar disorder (HCC) No date: Hypercholesteremia No date: Multiple sclerosis (HCC) No date: Thyrotoxicosis Past Surgical History: No past surgical history on file. Social History: TOBACCO: reports that she has quit smoking. She does not have any smokeless tobacco history on file. ETOH: reports that she does not currently use alcohol. Social History Substance and Sexual Activity Drug Use Not Currently Family History: Family History Family history unknown: Yes Screening: unknown Clinical information reviewed: Tobacco Allergies Meds Med Hx Surg Hx Fam Hx Soc Hx Physical Exam Airway Mallampati: III TM distance: >3 FB Neck ROM: full Mouth Open: limited Cardiovascular - normal exam Dental (+) Upper Dentures, Lower Dentures Pulmonary - normal exam Abdominal (+) obese Anesthesia Plan patient is NPO appropriate Any family history or previous problems with anesthesia no ASA 3 TIVA and MAC Any family history or previous problems with anesthesia no The patient is not a current smoker. Anesthetic plan and risks discussed with patient and legal guardian. Use of blood products discussed with who consented to blood products. [facility] Screening Labs: Lab Results Component Value Date WBC 6.2 05/24/2022 HGB 12.0 05/24/2022 MCV 93.9 05/24/2022 Lab Results Component Value Date NA 142 05/24/2022 K 5.0 05/24/2022 CL 111 (H) 05/24/2022 CO2 26 05/24/2022 BUN 21 (H) 05/24/2022 CREATININE 1.00 05/24/2022 GLUCOSE 101 (H) 05/24/2022 CALCIUM 9.4 05/24/2022 PROT 7.9 05/24/2022 ALKPHOS 70 05/24/2022 AST 32 05/24/2022 No echocardiogram results found for the past 14 days 05/24/22 (Final) Narrative Ordered by an unspecified provider. [facility] 05-08-2023 Note Hpi noon communicati v3 t patient was sent here for colonoscopy by Dr. Shakila Flower she has had some rectal bleeding she does not cooperate with her care she is she is it impossible to gain information from her but she was in a correction for dementia lungs were clear heart sounds normal abdomen unremarkable rectal exam showed poor sphincter tone and hemorrhoids procedure risks were explained will be set up for colonoscopy [facility] 05-08-2023 Note DEPARTMENT OF SURGER Y OPERATIVE NOTE DATE OF PROCEDURE: 05/08/2023 ATTENDING SURGEON: Reji Joyce MD COLLETER: 0 PREOPERATIVE DIAGNOSIS: rectal bleed POSTOPERATIVE DIAGNOSIS: same, hemorroids, diverticuli OPERATION: colonosocpy ANESTHESIA: ga ESTIMATED BLOOD LOSS: Or other Colonic changes HISTORY: Patient referred today by Dr. Kasper later from outside institution PROCEDURE: Risks and benefits were explained the risk of infection bleeding perforation scope was advanced to the ileocecal valve no serious pathology was encountered a few isolated diverticuli were seen with withdrawal the scope was soft few hemorrhoids but nothing else significant no polyps tumors or other colonic changes No polyps tumors [facility] 05-08-2023 Hospital Discharg e instructions Chen Aparicio RN - 05/08/2023 2:14 PM EDT Colonoscopy: What to expect at home ACTIVITY: DO NOT DRIVE, OPERATE MACHINERY, OR DRINK ANY ALCOHOL TODAY. Avoid making critical decisions, signing legal documents, or performing any activity that requires alertness for the rest of the day. You may be bloated or have gas pains since air was introduced into the colon for the procedure. You may need to pass the gas throughout the day. You may experience a small amount of rectal bleeding; this can be normal after your colonoscopy. Notify your physician if the bleeding is enough to saturate your clothes. Rest the remainder of the day. You may resume normal activity tomorrow. You may return to work tomorrow. DIET: You may resume a normal diet unless notified or recommended by your physician. You may be eager to eat a large meal after fasting, but it is a good idea to start with light meals and ease into solid foods the first day. (*) If your stomach is upset, try clear liquids and bland, low-fat foods like plain toast or rice. Drink plenty of fluids for the first 24 hours (unless your physician states otherwise). MEDICATION: Resume your normal home medications unless notified or recommended by your physician. If you take blood thinners (such as Coumadin, Eliquis, Plavix, Aspirin, etc.) or anti-inflammatory medications (Advil, Motrin, Aleve, etc.), ask your physician when you may resume these medications. FOLLOW-UP APPOINTMENT: Follow up with or call your physician as needed. When to call for help: Call your doctor IMMEDIATELY or seek medical care if you experience: Severe pain or vomiting A large amount (filling the toilet) of maroon, bloody stools or tar-like stools Your belly is swollen and firm with severe pain A fever greater than 101 degrees Redness or swelling of arm from the IV site for more than 48 hours Sudden onset of chest pain or shortness of breath If you become extremely dizzy or pass out (lose consciousness) IF YOU ARE UNABLE TO REACH YOUR PHYSICIAN GO TO NEAREST EMERGENCY DEPARTMENT documented in this encounter [facility] 05-08-2023 Note Formatting of this n ote might be different from the original. spoke with Debbie nurse at [facility] to confirm meds, allergies, NPO status, medical directives, completion of prep, pt's A&O status, and how she transfers. Received verbal consent for procedure and anesthesia from pt's guardian Rebekah Gould. [facility] 05-08-2023 Miscellaneous Notes spoke with Debbie nurse at [facility] to confirm meds, allergies, NPO status, medical directives, completion of prep, pt's A&O status, and how she transfers. Received verbal consent for procedure and anesthesia from pt's guardian Rebekah Gould. Images from the original note were not included. DEPARTMENT OF SURGERY OPERATIVE NOTE DATE OF PROCEDURE: 05/08/2023 ATTENDING SURGEON: Reji Joyce MD COLLETER: 0 PREOPERATIVE DIAGNOSIS: rectal bleed POSTOPERATIVE DIAGNOSIS: same, hemorroids, diverticuli OPERATION: colonosocpy ANESTHESIA: ga ESTIMATED BLOOD LOSS: Or other Colonic changes HISTORY: Patient referred today by Dr. Kasper later from outside institution PROCEDURE: Risks and benefits were explained the risk of infection bleeding perforation scope was advanced to the ileocecal valve no serious pathology was encountered a few isolated diverticuli were seen with withdrawal the scope was soft few hemorrhoids but nothing else significant no polyps tumors or other colonic changes No polyps tumors documented in this encounter [facility] 05-08-2023 History and physical note Hpi noon communicativ3 t patient was sent here for colonoscopy by Dr. Shakila Flower she has had some rectal bleeding she does not cooperate with her care she is she is it impossible to gain information from her but she was in a correction for dementia lungs were clear heart sounds normal abdomen unremarkable rectal exam showed poor sphincter tone and hemorrhoids procedure risks were explained will be set up for colonoscopy [employer] Work Phone: 05-08-2023 History and physical note Hpi noon communicativ3 t patient was sent here for colonoscopy by Dr. Shakila Flower she has had some rectal bleeding she does not cooperate with her care she is she is it impossible to gain information from her but she was in a correction for dementia lungs were clear heart sounds normal abdomen unremarkable rectal exam showed poor sphincter tone and hemorrhoids procedure risks were explained will be set up for colonoscopy documented in this encounter [facility] 05-08-2023 Note Formatting of this n ote might be different from the original. Images from the original note were not included. DEPARTMENT OF SURGERY OPERATIVE NOTE DATE OF PROCEDURE: 05/08/2023 ATTENDING SURGEON: Reji Joyce MD COLLETER: 0 PREOPERATIVE DIAGNOSIS: rectal bleed POSTOPERATIVE DIAGNOSIS: same, hemorroids, diverticuli OPERATION: colonosocpy ANESTHESIA: ga ESTIMATED BLOOD LOSS: Or other Colonic changes HISTORY: Patient referred today by Dr. Kasper later from outside institution PROCEDURE: Risks and benefits were explained the risk of infection bleeding perforation scope was advanced to the ileocecal valve no serious pathology was encountered a few isolated diverticuli were seen with withdrawal the scope was soft few hemorrhoids but nothing else significant no polyps tumors or other colonic changes No polyps tumors [facility] 05-06-2023 Miscellaneous Notes Name of caller: [employer] Contact phone number: [phone] Relationship to Patient: Provider: Dr. Joyce Practice: [facility] Chief Complaint/Reason for Call: Elsy called in stating that the patient is having a colonoscopy on 05/08/23 and they need to know the prep so they can get it together for her by tomorrow. Please fax to [phone]. Best time of day caller can be reached: Any Patient advised that office/PCP has 24-48 business hours to return their call: No documented in this encounter [facility] 05-06-2023 Telephone encounter Note Name of caller: Elsy Contact phone number: [phone] Relationship to Patient: Provider: Dr. Joyce Practice: [facility] Chief Complaint/Reason for Call: Elsy called in stating that the patient is having a colonoscopy on 05/08/23 and they need to know the prep so they can get it together for her by tomorrow. Please fax to [phone]. Best time of day caller can be reached: Any Patient advised that office/PCP has 24-48 business hours to return their call: No [facility] 05-24-2022 Hospital Discharg e joshua Norris MD - 05/24/2022 5:50 PM EDT Please return the emergency department if you have any thoughts of harming yourself or harming others or have any hallucinations. Please follow-up with the behavioral health psychiatrist whose contact information is on the sheet for further evaluation management of your depression. If your depression significant worsens also please return the emergency department immediately you are welcome here at any time. The following attachments cannot be sent through Care Everywhere.Depression: Self Care (Slovak)documented in this encounter [facility] Work Phone: documented in this encounter [facility] Work Phone: Evaluation note* Diagnosis Multiple sclerosis (HCC) Multiple sclerosis Encounter for screening for malignant neoplasm of colon documented in this encounter [facility] note* Diagnosis Multiple sclerosis (HCC) Multiple sclerosis Encounter for screening for malignant neoplasm of colon documented in this encounter [facility] note* Diagnosis MS (multiple sclerosis) (HCC) Multiple sclerosis Altered mental status HLD (hyperlipidemia) Other and unspecified hyperlipidemia documented in this encounter [facility] note* Diagnosis Multiple sclerosis (HCC)- Primary Multiple sclerosis documented in this encounter [facility] Summary Purpose Family History No Family History Records FoundNo Family History Records FoundNo Family History Records FoundNo Family History Records FoundNo Family History Records FoundNo Family History Records Found Advance Directives No Advanced Directives Records FoundNo Advanced Directives Records FoundNo Advanced Directives Records FoundNo Advanced Directives Records FoundNo Advanced Directives Records FoundNo Advanced Directives Records Found Procedure Findings Note HNO ID: [id number] Author: Mansoor Barfield Service: ? Author Type: Physician Type: Brief Op Note Filed: 09/13/2020 8:25 AM Note Text: BRIEF OPERATIVE / PROCEDURE NOTE LOG ID: [id number] SURGERY/PROCEDURE DATE: 09/13/2020 INCISION/PROCEDURE START TIME: 7:49 AM INCISION CLOSE/PROCEDURE END TIME: 8:19 AM SURGEON(S)/PROCEDURALIST(S) AND COLLETER(S): Surgeon(s) and Role: * Pillo Barfield - Primary No Additional Staff SURGERY/PROCEDURE(S): colonoscopy w polypectomy and bx ANESTHESIA: Monitored Anesthesia Care FINDINGS: polyps ESTIMATED BLOOD LOSS: 2 mls SPECIMENS: polyps/asc co COMPLICATIONS: None PRE-OP/PRE-PROCEDURE DIAGNOSIS: h/o polyps, diarrhea POST-OP/POST-PROCEDURE DIAGNOSIS: as above SIGNATURE: Pillo Barfield MD PATIENT NAME: Janeen Diaz DATE: September 13, 2020 TIME: 8:24 AM PAGER/CONTACT #: [phone] Note HNO ID: [id number] Author: Lilian Shipley (Lyle) Jasson Service: General Internal Medicine Author Type: Nurse Practitioner Type: Discharge Summary Filed: 06/01/2020 5:00 PM Note Text: Attestation signed by Luc Layton at 06/02/2020 6:53 PM [facility] STAFF PHYSICIAN NOTE OF PERSONAL INVOLVEMENT IN CARE I have reviewed the discharge summary obtained and documented by the WALLPAPER PRINTER HELPER and I personally participated in the qiu components. I have discussed the case and management of the patient's care. The following comments revise or confirm relevant qiu components of their note. Plan of care discussed with Care Management and WALLPAPER PRINTER HELPER. CARE COORDINATION: Discharge Management: I personally spent greater than 30 minutes involved in the discharge management of this patient SIGNATURE: Luc Layton MD PAGER: DATE of SERVICE: June 02, 2020 TIME of SERVICE: 6:52 PM (more content not included)... Hospital Course Note HNO ID: [id number] Author: Lilian Shipley (Amy Spaulding Service: General Internal Medicine Author Type: Nurse Practitioner Type: Discharge Summary Filed: 06/01/2020 5:00 PM Note Text: Attestation signed by Luc Layton at 06/02/2020 6:53 PM [facility] STAFF PHYSICIAN NOTE OF PERSONAL INVOLVEMENT IN CARE I have reviewed the discharge summary obtained and documented by the WALLPAPER PRINTER HELPER and I personally participated in the qiu components. I have discussed the case and management of the patient's care. The following comments revise or confirm relevant qiu components of their note. Plan of care discussed with Care Management and WALLPAPER PRINTER HELPER. CARE COORDINATION: Discharge Management: I personally spent greater than 30 minutes involved in the discharge management of this patient SIGNATURE: Luc Layton MD PAGER: DATE of SERVICE: June 02, 2020 TIME of SERVICE: 6:52 PM (more content not included)... Reason for Referral Specialty Diagnoses / Procedures Referred By Contac t Referred To Contact Radiology Diagnoses Multiple sclerosis (HCC) Procedures MR cervical spine w and wo contrast Noble Hilton DO [address] [place] [address] Referral ID Status Reason Start Date Expiration Date V isits Requested Visits Authorized [id number] Authorized 04/16/2023 10/13/2023 1 1 Specialty Diagnoses / Procedures Referred By Contac t Referred To Contact Radiology Diagnoses Multiple sclerosis (HCC) Procedures MR brain w and wo contrast Noble Hilton DO [address] [place] [address] Referral ID Status Reason Start Date Expiration Date V isits Requested Visits Authorized [id number] Authorized 04/20/2023 10/17/2023 1 1 Referral ID Status Reason Start Date Expiration Date Visits Re quested Visits Authorized [id number] Closed 04/16/2023 10/13/2023 1 1 Referral ID Status Reason Start Date Expiration Date Visits Re quested Visits Authorized [id number] Closed 04/20/2023 10/17/2023 1 1 Additional Source Comments INFORMATION SOURCE (unrecogn ized section and content) DATE CREATED AUTHOR AUTHOR'S ORGANIZ ATION 05/25/2022 [facility] DATE CREATED AUTHOR AUTHOR'S ORGANIZ ATION 06/04/2022 [facility] DATE CREATED AUTHOR AUTHOR'S ORGANIZ ATION 08/28/2022 [facility] DATE CREATED AUTHOR AUTHOR'S ORGANIZ ATION 10/11/2022 [facility] DATE CREATED AUTHOR AUTHOR'S ORGANIZ ATION 05/19/2023 [facility] Reason for Visit (unrecogniz ed section and content) Specialty Diagnoses / Procedures Referred By Contac t Referred To Contact Radiology Diagnoses Multiple sclerosis (HCC) Procedures MR cervical spine w and wo contrast Noble Hilton, DO [address] [place] [address] Referral ID Status Reason Start Date Expiration Date V isits Requested Visits Authorized [id number] Authorized 04/16/2023 10/13/2023 1 1 Specialty Diagnoses / Procedures Referred By Contac t Referred To Contact Radiology Diagnoses Multiple sclerosis (HCC) Procedures MR brain w and wo contrast Noble Hilton, DO [address] [place] [address] Referral ID Status Reason Start Date Expiration Date V isits Requested Visits Authorized [id number] Authorized 04/20/2023 10/17/2023 1 1 Specialty Diagnoses / Procedures Referred By Contac t Referred To Contact Diagnoses Encounter for screening for malignant neoplasm of colon Encounter for screening for malignant neoplasm of colon [Z12.11] Procedures TN COLON CA SCRN NOT HI RSK IND COLONOSCOPY FOR LOW RISK SCREENING Reji Joyce MD [address] [facility], [address] [place] [address] [address] [facility] [address] [facility] [place] [address] Referral ID Status Reason Start Date Expiration Date Visits Re quested Visits Authorized [id number] 1 1 Referral ID Status Reason Start Date Expiration Date Visits Re quested Visits Authorized [id number] Closed 04/20/2023 10/17/2023 1 1 Referral ID Status Reason Start Date Expiration Date Visits Re quested Visits Authorized [id number] Closed 04/16/2023 10/13/2023 1 1 Reason Onset Date Comments Other 05/06/2023 Care Teams (unrecognized sec tion and content) Retail Sales Specialist Relationship Specialty Start Date End Date Shakila Flower [address] [place] [address] [address] [place] [address] PCP - General 11/04/21 Retail Sales Specialist Relationship Specialty Start Date End Date Shakila Flower [address] [place] [address] [address] [place] [address] PCP - General 11/04/21 Retail Sales Specialist Relationship Specialty Start Date End Date Shakila Flower [address] [place] [address] [address] [place] [address] PCP - General 11/04/21 Retail Sales Specialist Relationship Specialty Start Date End Date Shakila Flower [address] [place] [address] [address] [place] [address] PCP - General 11/04/21 Retail Sales Specialist Relationship Specialty Start Date End Date Shakila Flower [address] [place] [address] [address] [place] [address] PCP - General 11/04/21 Retail Sales Specialist Relationship Specialty Start Date End Date Shakila Flower [address] [place] [address] [address] [place] [address] PCP - General 11/04/21 Retail Sales Specialist Relationship Specialty Start Date End Date Shakila Flower [address] [place] [address] [address] [place] [address] PCP - General 11/04/21 Scheduled Active and Recently Administ ered Medications (unrecognized section and content) PRN Medication Order 05/06/2023 05/07/2023 05/08/2023 sodium chloride 0.9 % infusion 5-250 mL/hr, IntraVENous, PRN, if patient receiving piggyback infusions and maintenance fluids are not ordered OR KVO fluids to protect IV site / prevent frequent line interruptions/ long duration, Starting on Thu05/08/23 at 1345, For piggyback infusion, administer at same rate as piggyback for a total of 25 mL. Enter 25 mL into dose field and piggyback rate into rate field of order. If piggyback is infusing at a rate less than 100 mL/hr, enter 25 mL into dose field and 100 mL/hr into rate field of order. For KVO fluids, enter rate of 20 mL/hr or less into rate field of order. sodium chloride 0.9 % infusion 5-250 mL/hr, IntraVENous, PRN, if patient receiving piggyback infusions and maintenance fluids are not ordered OR KVO fluids to protect IV site / prevent frequent line interruptions/ long duration, Starting on Thu05/08/23 at 1322, Preprocedure, For piggyback infusion, administer at same rate as piggyback for a total of 25 mL. Enter 25 mL into dose field and piggyback rate into rate field of order. If piggyback is infusing at a rate less than 100 mL/hr, enter 25 mL into dose field and 100 mL/hr into rate field of order. For KVO fluids, enter rate of 20 mL/hr or less into rate field of order. 1345 (New Bag - Prov ider: Vicky Aparicio RN)1350 (Paused - Provider: ROBSON Collazo CRNA - Comment: Switch to gravity)1351 (New Bag - Provider: ROBSON Collazo CRNA)1355 (Continued by Anesthesia - Provider: ROBSON Collazo CRNA)1412 (Stopped - Provider: ROBSON Collazo CRNA) sodium chloride 0.9% (NS) flush 10 mL 10 mL, IntraVENous, PRN, line care, Starting on Thu05/08/23 at 1345, After every IV line use sodium chloride 0.9% (NS) flush 10 mL 10 mL, IntraVENous, PRN, line care, Starting on Thu05/08/23 at 1322, Preprocedure, After every IV line use FOR RECORDS PERTAINING TO PATIENTS WHO ARE OR HAVE BEEN ENROLLED IN A CHEMICAL DEPENDENCY/SUBSTANCEABUSE PROGRAM, SOME INFORMATION MAY BE OMITTED. This clinical summary was aggregated from multiple sources. Caution should be exercised in using it in the provision of clinical care. This summary normalizes information from multiple sources, and as a consequence, information in this document may materially change the coding, format and clinical context of patient data. In addition, data may be omitted in some cases. CLINICAL DECISIONS SHOULD BE BASED ON THE PRIMARY CLINICAL RECORDS. [facility] provides no warranty or guarantee of the accuracy or completeness of information in this document.
[2023-11-25 09:21] LABS: Valproic Acid (Depakene) Level 82 ug/mL (50-100)
== END ==
LOC: OLS.ACW100 04:00
PROVIDERS: Referring Provider Family Medicine; Visit Provider Family Medicine
DX: G35 Multiple sclerosis (principal); R41.82 Altered mental status, unspecified; M62.81 Muscle weakness (generalized); R26.81 Unsteadiness on feet
CPT/HCPCS: 36415; 80164; 82140

== ENCOUNTER → 2023-12-03 | Outpatient (REF) | payer MEDICARE, MEDICAID, SELFPAY ==
[2023-12-03 10:45] LABS: T3 Total - Triiodothyronine 1.09 ng/mL (0.6-1.81)
[2023-12-03 10:49] LABS: Hemoglobin A1c 5.5 % (3.8-5.6)
[2023-12-03 10:52] LABS: Valproic Acid (Depakene) Level 101 ug/mL (50-100)
[2023-12-03 11:02] LABS: Cholesterol 134 mg/dL (200); High Density Lipoprotein 67 mg/dL; T4 Total, Thyroxin 9.9 ug/dL (4.8-13.9); Thyroid Stim Hormone (TSH) 1.62 uIU/mL (0.358-3.74); Triglycerides 76 mg/dL; Very Low Density Lipoprotein 15 mg/dL (5-40)
== END ==
LOC: OLS.ACW100 06:50
PROVIDERS: Visit Provider Family Medicine
DX: G35 Multiple sclerosis (principal); M62.81 Muscle weakness (generalized); R26.81 Unsteadiness on feet; R41.841 Cognitive communication deficit; R27.9 Unspecified lack of coordination; Z79.899 Other long term (current) drug therapy
CPT/HCPCS: 36415; 80061; 80164; 83036; 84436; 84443; 84480

== ENCOUNTER → 2023-12-08 | Outpatient (REF) | payer MEDICARE, MEDICAID, SELFPAY ==
--- OUTSIDE RECORDS SUMMARY | 2023-12-08 05:07 | XMS RPT_ITS | CCD ---
Author Name Unknown Address [address] [place] [address] Organization [facility] Care Team Providers Care Railcar Switchman Name Role Phone Kinjal REDD, George Callejas [...] Care Unavailable Shakila Flower Primary Care Provider SHAKILA FLOWER Primary Care Unavailable NOBLE HILTON [...] 97 mm[Hg] Reji Chisholm MD Work Phone: [facility] [employer] 05-08-2023 14:32-0400 Heart rate 76 /min Reji Chisholm MD Work Phone: [facility] [employer] 05-08-2023 14:32-0400 Respiratory rate 16 /min Reji Chisholm MD Work Phone: [facility] [employer] 05-08-2023 14:32-0400 SaO2% (BldA) [Mass fraction] 95 % Reji Chisholm MD Work Phone: [facility] [employer] 05-08-2023 14:32-0400 Systolic blood pressure 142 mm[Hg] Reji Chisholm MD Work Phone: [facility] [employer] 05-08-2023 14:19-0400 Body temperature 97.5 [degF] Reji Chisholm MD Work Phone: [facility] [employer] 05-08-2023 13:42-0400 Body height 157.5 cm Reji Chisholm MD Work Phone: [facility] [employer] 05-08-2023 13:42-0400 Body mass index (BMI) [Ratio] 45.73 kg/m2 Reji Chisholm MD Work Phone: [facility] [employer] 05-08-2023 13:42-0400 Body weight 113.4 kg Reji Chisholm MD Work Phone: [facility] [employer] 05-24-2022 19:24-0400 Diastolic blood pressure 92 mm[Hg] Sameer Mudrakola DO Work Phone: [facility] 05-24-2022 19:24-0400 Heart rate 86 /min Sameer Mudrakola DO Work Phone: [facility] 05-24-2022 19:24-0400 Respiratory rate 18 /min Sameer Mudrakola DO Work Phone: [facility] 05-24-2022 19:24-0400 SaO2% (BldA) [Mass fraction] 96 % Sameer Mudrakola DO Work Phone: [facility] 05-24-2022 19:24-0400 Systolic blood pressure 146 mm[Hg] Sameer Mudrakola DO Work Phone: [facility] 05-24-2022 11:07-0400 Body height 157.5 cm Sameer Mudrakola DO Work Phone: [facility] 05-24-2022 11:07-0400 Body mass index (BMI) [Ratio] 32.92 kg/m2 Sameer Mudrakola DO Work Phone: [facility] 05-24-2022 11:07-0400 Body temperature 98.4 [degF] Sameer Sherman DO Work Phone: [facility] 05-24-2022 11:07-0400 Body weight 81.65 kg Sameer Sherman DO Work Phone: [facility] Encounters Encounter Date Encounter Type Care Provider Facility Start: 05-18-2023 End: 05-19-[address] [facility] Start: 05-18-2023 End: 05-18-2023 Subsequent hospital visit by physician Noble Hilton DO Work Phone: [facility] MRI Procedures Date Procedure Procedure Detail Performing Clinician Start: 05-08-2023 Colonoscopy Reji Chisholm MD Work Phone: Start: 05-24-2022 POCT [...] Screening for malign ant neoplasm of colon [facility] Start: 11-17-2027 DTaP/Tdap/Td vaccine (3 - Td or Tdap) DTaP/Tdap/Td vaccine (3 - Td or Tdap) [facility] Start: 11-17-2027 DTaP/Tdap/Td Vaccine s (2 - Td or Tdap) DTaP/Tdap/Td Vaccines (2 - Td or Tdap) [facility] Start: 07-03-2023 Influenza vaccination [facility] Start: 05-18-2023 End: 05-18-2023 Patient encounter procedure [facility] MRI Start: 05-08-2023 End: 05-08-2023 Admission to same day surgery center 05/08/2023 1:00 PM EDT - 05/08/2023 1:30 PM EDT Surgery [facility] [address] [place] [id number] Reji Joyce MD [address] [place] [address] COLONOSCOPY FOR LOW RISK SCREENING [G0121] [facility] [address] Immunizations Immunization Date Immunization Notes Care Provider Fa cility 11-28-2020 Pfizer SARS-CoV-2 Vaccination Noble Hilton DO Work Phone: [employer] 11-07-2020 Pfizer SARS-CoV-2 Vaccination Noblemichael Hilton DO Work Phone: [employer] 08-29-2019 influenza virus vacc ine, unspecified formulation Noblemichael Hilton DO Work Phone: [employer] Payers Date Payer Category Payer Medicare ANTHEM MEDICARE ADVANTAGE ANTHEM MEDIBLUE [id number] 2022-Present [address] [place] [address] Medicare HMO [id number] 2022 Medicare [id number] 2022 Medicaid [employer] MEDICAID UHC [employer] MEDICAID ONLY [id number] 2022-Present [address] [place] [address] Medicaid HMO [id number] 2021 Medicaid [id number] 2017 Medicare BS MEDICARE AN THEM MEDIBLUE ESSENTIAL/PLUS [id number] 2017-Present [address] [place] [address] [id number] 1959 Medicare [id number] 1959 Unknown [id number] 1957 Unknown [id number] 1957 Unknown [id number] 1957 Unknown [id number] 1957 Unknown [id number] Private Health Insurance Social History Date Type Detail Facility Start: 05-24-2022 Tobacco smoking stat [facility] Work Phone: History of tobacco use Current smoker [facility] Work Phone: History of tobacco use Cigarette Smoker [facility] Work Phone: Start: 05-24-2022 End: 05-09-2023 Alcohol intake Ex-drinker (finding) [employer] Work Phone: Start: 05-24-2022 History SDOH Alcohol Comment former ETOH [employer] Work Phone: Start: 1955 Sex Assigned At Not on file [facility] Work Phone: Start: 05-14-2022 End: 05-18-2023 Exposure to SARS-CoV-2 (event) Not sure [employer] Work Phone: Start: 05-24-2022 End: 05-09-2023 History of Social function [facility] [employer] Start: 05-24-2022 End: 05-09-2023 Tobacco use panel [facility] Start: 04-28-2023 End: 05-08-2023 Exposure to SARS-CoV-2 (event) Unable to assess [facility] [employer] Clinical Notes 05-24-2022 to 05-08-2023 Discharge InstructionsPerioperative Nursing Note - Vicky Aparicio RN - 05/08/2023 1:54 PM EDTPerioperative Nursing Note - Vicky Aparicio RN - 05/08/2023 1:54 PM EDTDischarge InstructionsAttachments Note Date & Type Note Facility 05-08-2023 Note Patient: Janeen Diaz Procedure Summary Date: 05/08/23 Room / Location: [facility] [address] / [...] once all PACU criteria has been met. [facility] 05-08-2023 Note Patient: Janeen Diaz Procedure Summary Date: 05/08/23 Room / Location: [facility] [address] / ARCH Gastroenterology [...] opportunity for questions and acknowledgement of understanding. [facility] 05-08-2023 Note Patient: Janeen Diaz Procedure Information Date/Time: 05/08/23 1300 Procedure: COLONOSCOPY FOR LOW RISK SCREENING Location: [facility] / ARCH Gastroenterology Providers: Reji Chisholm MD EK05/2022 Sinus rhythm Normal Carr No ST or T wave changes Relevant [...] (Final) Narrative Ordered by an unspecified provider. [facility] 05-08-2023 Note Hpi noon communicati v3 t patient was sent here for colonoscopy by Dr. Shakila Flower she has had some rectal bleeding she does not cooperate with her care she is she is it impossible to gain information from her but she was in a [facility] lungs were clear heart sounds normal abdomen unremarkable rectal exam showed poor sphincter tone and hemorrhoids procedure risks were explained will be set up for colonoscopy [facility] 05-08-2023 Note DEPARTMENT OF SURGER Y OPERATIVE NOTE DATE OF PROCEDURE: 05/08/2023 ATTENDING SURGEON: Reji Joyce MD PROJECT MANAGER INTERIOR DESIGN: 0 PREOPERATIVE DIAGNOSIS: rectal bleed POSTOPERATIVE DIAGNOSIS: [...] or other colonic changes No polyps tumors [facility] 05-08-2023 Hospital Discharg e instructions Chen Aparicio [...] NEAREST EMERGENCY DEPARTMENT documented in this encounter [facility] 05-08-2023 Note Formatting of this n ote might be different from the original. spoke with Debbie nurse at [facility] to confirm meds, allergies, NPO status, medical directives, completion of prep, pt's A&O status, and how she transfers. Received verbal consent for procedure and anesthesia from pt's guardian Rebekah Gould. [facility] 05-08-2023 Miscellaneous Notes spoke with Debbie nurse at [facility] to confirm meds, allergies, NPO status, medical directives, completion of prep, pt's A&O status, and how she transfers. Received verbal consent for procedure and anesthesia from pt's guardian Rebekah Gould. Images from the original note were not included. DEPARTMENT OF SURGERY OPERATIVE NOTE DATE OF PROCEDURE: 05/08/2023 ATTENDING SURGEON: Reji Joyce MD PROJECT MANAGER INTERIOR DESIGN: 0 PREOPERATIVE DIAGNOSIS: rectal bleed POSTOPERATIVE DIAGNOSIS: [...] No polyps tumors documented in this encounter [facility] 05-08-2023 History and physical note Hpi noon communicativ3 t patient was sent here for colonoscopy by Dr. Shakila Flower she has had some rectal bleeding she does not cooperate with her care she is she is it impossible to gain information from her but she was in a penitentiary for dementia lungs were clear heart sounds normal abdomen unremarkable rectal exam showed poor sphincter tone and hemorrhoids procedure risks were explained will be set up for colonoscopy [employer] Work Phone: 05-08-2023 History and physical note Hpi noon communicativ3 t patient was sent here for colonoscopy by Dr. Shakila Flower she has had some rectal bleeding she does not cooperate with her care she is she is it impossible to gain information from her but she was in a penitentiary for dementia lungs were clear heart sounds normal abdomen unremarkable rectal exam showed poor sphincter tone and hemorrhoids procedure risks were explained will be set up for colonoscopy documented in this encounter [facility] 05-08-2023 Note Formatting of this n ote might be different from the original. Images from the original note were not included. DEPARTMENT OF SURGERY OPERATIVE NOTE DATE OF PROCEDURE: 05/08/2023 ATTENDING SURGEON: Reji Joyce MD PROJECT MANAGER INTERIOR DESIGN: 0 PREOPERATIVE DIAGNOSIS: rectal bleed POSTOPERATIVE DIAGNOSIS: [...] or other colonic changes No polyps tumors [facility] 05-06-2023 Miscellaneous Notes Name of caller: [employer] Contact phone number: [phone] Relationship to Patient: Provider: Dr. Joyce Practice: [facility] Chief Complaint/Reason for Call: Elsy called in stating that the patient is having a colonoscopy on 05/08/23 and they need to know the prep so they can get it together for her by tomorrow. Please fax to [phone]. Best time of day caller can be reached: Any Patient advised that office/PCP has 24-48 business hours to return their call: No documented in this encounter [facility] 05-06-2023 Telephone encounter Note Name of caller: Elsy Contact phone number: [phone] Relationship to Patient: Provider: Dr. Joyce Practice: [facility] Chief Complaint/Reason for Call: Elsy called in stating that the patient is having a colonoscopy on 05/08/23 and they need to know the prep so they can get it together for her by tomorrow. Please fax to [phone]. Best time of day caller can be reached: Any Patient advised that office/PCP has 24-48 business hours to return their call: No [facility] 05-24-2022 Hospital Discharg e joshua Norris [...] be sent through Care Everywhere.Depression: Self Care (Greek)documented in this encounter [facility] Work Phone: documented in this encounter [facility] Work Phone: Evaluation note* Diagnosis Multiple sclerosis (HCC) Multiple sclerosis Encounter for screening for malignant neoplasm of colon documented in this encounter [facility] note* Diagnosis Multiple sclerosis (HCC) Multiple sclerosis Encounter for screening for malignant neoplasm of colon documented in this encounter [facility] note* Diagnosis MS (multiple sclerosis) (HCC) Multiple sclerosis Altered mental status HLD (hyperlipidemia) Other and unspecified hyperlipidemia documented in this encounter [facility] note* Diagnosis Multiple sclerosis (HCC)- Primary Multiple sclerosis documented in this encounter [facility] Health Summary Purpose Family History No Family History Records FoundNo Family History Records FoundNo Family History Records FoundNo Family History Records FoundNo Family History Records FoundNo Family History Records Found Advance Directives No Advanced Directives Records FoundNo Advanced Directives Records FoundNo Advanced Directives Records FoundNo Advanced Directives Records FoundNo Advanced Directives Records FoundNo Advanced Directives Records Found Procedure Findings Note HNO ID: [id number] Author: Mansoor Barfield Service: ? Author Type: Physician Type: Brief Op Note Filed: 09/13/2020 8:25 AM Note Text: BRIEF OPERATIVE / PROCEDURE NOTE LOG ID: [id number] SURGERY/PROCEDURE DATE: 09/13/2020 INCISION/PROCEDURE START TIME: 7:49 AM INCISION CLOSE/PROCEDURE END TIME: 8:19 AM SURGEON(S)/PROCEDURALIST(S) AND PROJECT MANAGER INTERIOR DESIGN(S): Surgeon(s) and Role: * Pillo Barfield - Primary No Additional Staff SURGERY/PROCEDURE(S): colonoscopy w polypectomy and bx ANESTHESIA: Monitored Anesthesia Care FINDINGS: polyps ESTIMATED BLOOD LOSS: 2 mls SPECIMENS: polyps/asc co COMPLICATIONS: None PRE-OP/PRE-PROCEDURE DIAGNOSIS: h/o polyps, diarrhea POST-OP/POST-PROCEDURE DIAGNOSIS: as above SIGNATURE: Pillo Barfield MD PATIENT NAME: Janeen Diaz DATE: September 13, 2020 TIME: 8:24 AM PAGER/CONTACT #: [phone] Note HNO ID: [id number] Author: Lilian Shipley (Lyle) Jasson Service: General Internal Medicine Author Type: Nurse Practitioner Type: Discharge Summary Filed: 06/01/2020 5:00 PM Note Text: Attestation signed by Luc Layton at 06/02/2020 6:53 PM [facility] STAFF PHYSICIAN NOTE OF PERSONAL INVOLVEMENT IN CARE I have reviewed the discharge summary obtained and documented by the R D MANAGER and I personally participated in the qiu components. I have discussed the case and management of the patient's care. The following comments revise or confirm relevant qiu components of their note. Plan of care discussed with Care Management and R D MANAGER. CARE COORDINATION: Discharge Management: I personally spent greater than 30 minutes involved in the discharge management of this patient SIGNATURE: Luc Layton MD PAGER: DATE of SERVICE: June 02, 2020 TIME of SERVICE: 6:52 PM (more content not included)... Hospital Course Note HNO ID: [id number] Author: Lilian Shipley (Amy Spaulding Service: General Internal Medicine Author Type: Nurse Practitioner Type: Discharge Summary Filed: 06/01/2020 5:00 PM Note Text: Attestation signed by Luc Layton at 06/02/2020 6:53 PM [facility] STAFF PHYSICIAN NOTE OF PERSONAL INVOLVEMENT IN CARE I have reviewed the discharge summary obtained and documented by the R D MANAGER and I personally participated in the qiu components. I have discussed the case and management of the patient's care. The following comments revise or confirm relevant qiu components of their note. Plan of care discussed with Care Management and R D MANAGER. CARE COORDINATION: Discharge Management: I personally spent [...] Noble Hilton DO [address] [place] [address] Referral ID Status Reason Start Date Expiration Date V isits Requested Visits Authorized [id number] Authorized 04/16/2023 10/13/2023 1 1 Specialty Diagnoses / Procedures Referred By Contac t Referred To Contact Radiology Diagnoses Multiple sclerosis (HCC) Procedures MR brain w and wo contrast Noble Hilton DO [address] [place] [address] Referral ID Status Reason Start Date Expiration Date V isits Requested Visits Authorized [id number] Authorized 04/20/2023 10/17/2023 1 1 Referral ID Status Reason Start Date Expiration Date Visits Re quested Visits Authorized [id number] Closed 04/16/2023 10/13/2023 1 1 Referral ID Status Reason Start Date Expiration Date Visits Re quested Visits Authorized [id number] Closed 04/20/2023 10/17/2023 1 1 Additional Source Comments INFORMATION SOURCE (unrecogn ized section and content) DATE CREATED AUTHOR AUTHOR'S ORGANIZ ATION 05/25/2022 [facility] DATE CREATED AUTHOR AUTHOR'S ORGANIZ ATION 06/04/2022 [facility] DATE CREATED AUTHOR AUTHOR'S ORGANIZ ATION 08/28/2022 [facility] DATE CREATED AUTHOR AUTHOR'S ORGANIZ ATION 10/11/2022 [facility] DATE CREATED AUTHOR AUTHOR'S ORGANIZ ATION 05/19/2023 [facility] Reason for Visit (unrecogniz ed section and content) Specialty Diagnoses / Procedures Referred By Contac t Referred To Contact Radiology Diagnoses Multiple sclerosis (HCC) Procedures MR cervical spine w and wo contrast Noble Hilton, DO [address] [place] [address] Referral ID Status Reason Start Date Expiration Date V isits Requested Visits Authorized [id number] Authorized 04/16/2023 10/13/2023 1 1 Specialty Diagnoses / Procedures Referred By Contac t Referred To Contact Radiology Diagnoses Multiple sclerosis (HCC) Procedures MR brain w and wo contrast Noble Hilton, DO [address] [place] [address] Referral ID Status Reason Start Date Expiration Date V isits Requested Visits Authorized [id number] Authorized 04/20/2023 10/17/2023 1 1 Specialty Diagnoses / Procedures Referred By Contac t Referred To Contact Diagnoses Encounter for screening for malignant neoplasm of colon Encounter for screening for malignant neoplasm of colon [Z12.11] Procedures DE COLON CA SCRN NOT HI RSK IND COLONOSCOPY FOR LOW RISK SCREENING Reji Joyce MD [address] [facility] [place] [address] [facility] [address] [place] [address] Referral ID Status Reason Start Date Expiration Date Visits Re quested Visits Authorized [id number] 1 1 Referral ID Status Reason Start Date Expiration Date Visits Re quested Visits Authorized [id number] Closed 04/20/2023 10/17/2023 1 1 Referral ID Status Reason Start Date Expiration Date Visits Re quested Visits Authorized [id number] Closed 04/16/2023 10/13/2023 1 1 Reason Onset Date Comments Other 05/06/2023 Care Teams (unrecognized sec tion and content) Railcar Switchman Relationship Specialty Start Date End Date Shakila Flower [address] [place] [address] [address] [place] [address] PCP - General 11/04/21 Railcar Switchman Relationship Specialty Start Date End Date Shakila Flower [address] [place] [address] [address] [place] [address] PCP - General 11/04/21 Rail[employer] Switch[employer] Relationship Specialty Start Date End Date Shakila Flower [address] [place] [address] [address] [place] [address] PCP - General 11/04/21 Railcar Switchman Relationship Specialty Start Date End Date Shakila Flower [address] [place] [address] [address] [place] [address] PCP - General 11/04/21 Railcar Switchman Relationship Specialty Start Date End Date Shakila Flower [address] [place] [address] [address] [place] [address] PCP - General 11/04/21 Rail[employer] Switchman Relationship Specialty Start Date End Date Shakila Flower [address] [place] [address] [address] [place] [address] PCP - General 11/04/21 Rail[employer] Switchman Relationship Specialty Start Date End Date Shakila Flower [address] [place] [address] [address] [place] [address] PCP - General 11/04/21 Scheduled Active and [...] BE BASED ON THE PRIMARY CLINICAL RECORDS. [facility] provides no warranty or guarantee of the accuracy or completeness of information in this document.
[2023-12-08 10:00] LABS: Hemoglobin 13.2 g/dL (12.0-15.0); Mean Corp Hgb Conc 30.7 g/dL (32-36); Mean Corpuscular Hgb 30.2 pg (27.0-32.0); Mean Corpuscular Volume 98.4 fL (81-99); Mean Platelet Vol. 11.2 fl (6.2-12.0); Platelet Count 196 K/mm3 (150-450); RBC Distribution Width CV 15.2 % (11.6-14.6); RBC Distribution Width SD 55.4 fl (35.1-43.9); Red Blood Count 4.37 M/mm3 (4.2-5.4); White Blood Count 5.7 K/mm3 (4.4-11.0)
[2023-12-08 10:21] LABS: Anion Gap 2 (5-15); BUN 23 mg/dL (7-18); BUN/Creat Ratio 19.7 RATIO (10-20); Calcium,Total 10.4 mg/dL (8.5-10.1); Chloride 107 mmol/L (98-107); Creatinine, Serum 1.17 mg/dL (0.55-1.02); EST Glomerular Filtration Rate 49 mL/min (>60); Est Glom Filt Rate - Afr Amer 60 mL/min (>60); Glucose 79 mg/dL (74-106); Potassium 4.1 mmol/L (3.5-5.1); Sodium Level 138 mmol/L (136-145)
== END ==
LOC: OLS.ACW100 04:00
PROVIDERS: Visit Provider Family Medicine
DX: G35 Multiple sclerosis (principal); R41.82 Altered mental status, unspecified; M62.81 Muscle weakness (generalized)
CPT/HCPCS: 36415; 80048; 85027

== ENCOUNTER → 2024-01-01 | Outpatient (REF) | payer MEDICARE, MEDICAID, SELFPAY ==
--- OUTSIDE RECORDS SUMMARY | 2024-01-01 04:36 | XMS RPT_ITS | CCD ---
Author Name Unknown Address [address] [facility] [facility] [address] [place] [address] Organization [facility] Care Team Providers Care Sleeve Tailor Name Role Phone Kinjal REDD, George Callejas Primary Care Provid er Tania Kasper Attending Unavailable Shakila Flower Primary Care Unavailable PROVIDER, UNKNOWN Referring Unavailable Noble Hilton Attending Unavailable Shakila lFower Primary Care Unavailable PROVIDER, UNKNOWN Referring Unavailable [...] 97 mm[Hg] Reji Chisholm MD Work Phone: [facility] [employer] 05-08-2023 14:32-0400 Heart rate 76 /min Reji Chisholm MD Work Phone: [facility] 05-08-2023 14:32-0400 Respiratory rate 16 /min Reji Chisholm MD Work Phone: [facility] [employer] 05-08-2023 14:32-0400 SaO2% (BldA) [Mass fraction] 95 % Reji Chisholm MD Work Phone: [facility] 05-08-2023 14:32-0400 Systolic blood pressure 142 mm[Hg] Reji Chisholm MD Work Phone: [facility] [employer] 05-08-2023 14:19-0400 Body temperature 97.5 [degF] Reji Chisholm MD Work Phone: [facility] 05-08-2023 13:42-0400 Body height 157.5 cm Reji Chsiholm MD Work Phone: [facility] 05-08-2023 13:42-0400 Body mass index (BMI) [Ratio] 45.73 kg/m2 Reji Chisholm MD Work Phone: [facility] 05-08-2023 13:42-0400 Body weight 113.4 kg Reji Chisholm MD Work Phone: [facility] 05-24-2022 19:24-0400 Diastolic blood pressure 92 mm[Hg] Sameer Mudrakola DO Work Phone: [facility] 05-24-2022 19:24-0400 Heart rate 86 /min Sameer Mudrakola DO Work Phone: [facility] 05-24-2022 19:24-0400 Respiratory rate 18 /min Sameer Mudrakola DO Work Phone: [facility] 05-24-2022 19:24-0400 SaO2% (BldA) [Mass fraction] 96 % Sameer Mudrakola DO Work Phone: [facility] 05-24-2022 19:24-0400 Systolic blood pressure 146 mm[Hg] Sameer Mudrakola DO Work Phone: [facility] 05-24-2022 11:07-0400 Body height 157.5 cm Sameer Mudrakola DO Work Phone: [facility] 05-24-2022 11:07-0400 Body mass index (BMI) [Ratio] 32.92 kg/m2 Sameer Mudrakola DO Work Phone: [facility] 05-24-2022 11:07-0400 Body temperature 98.4 [degF] Sameer Sherman DO Work Phone: [facility] 05-24-2022 11:07-0400 Body weight 81.65 kg Sameer Sherman DO Work Phone: [facility] Encounters Encounter Date Encounter Type Care Provider Facility Start: 05-18-2023 End: 05-19-2023 ambulatory [facility] Start: 05-18-2023 End: 05-18-2023 Subsequent hospital visit [...] Screening for malign ant neoplasm of colon [facility] Start: 11-17-2027 DTaP/Tdap/Td vaccine (3 - Td or Tdap) DTaP/Tdap/Td vaccine (3 - Td or Tdap) [facility] Start: 11-17-2027 DTaP/Tdap/Td Vaccine s (2 - Td or Tdap) DTaP/Tdap/Td Vaccines (2 - Td or Tdap) [facility] Start: 07-03-2023 Influenza vaccination [facility] Start: 05-18-2023 End: 05-18-2023 Patient encounter procedure [facility] Start: 05-08-2023 End: 05-08-2023 Admission to same day surgery center 05/08/2023 1:00 PM EDT - 05/08/2023 1:30 PM EDT Surgery [facility] [address] [place] [id number] Reji Joyce MD [address] [facility] [place] [address] COLONOSCOPY FOR LOW RISK SCREENING [G0121] [facility] [address] Immunizations Immunization Date Immunization Notes Care Provider Fa cility 11-28-2020 Pfizer SARS-CoV-2 Vaccination Noble Hilton DO Work Phone: [employer] 11-07-2020 Pfizer SARS-CoV-2 Vaccination Noblemichael Hilton DO Work Phone: [employer] 08-29-2019 influenza virus vacc ine, unspecified formulation Noblemichael Hilton DO Work Phone: [employer] Payers Date Payer Category Payer Medicare ANTHEM MEDICARE ADVANTAGE ANTHEM MEDIBLUE [id number] 2022-Present [address] [place] [address] Medicare HMO [id number] 2022 Medicare [id number] 2022 Medicaid [employer] MEDICAID UHC [employer] MEDICAID ONLY [id number] 2022-Present [address] [place] [address] Medicaid HMO [id number] 2021 Medicaid [id number] 2017 Medicare BS MEDICARE AN THEM MEDIBLUE ESSENTIAL/PLUS [id number] 2017-Present [address] [place] [address] [id number] 1959 Medicare [id number] 1959 Unknown [id number] 1957 Unknown [id number] 1957 Unknown [id number] 1957 Unknown [id number] 1957 Unknown [id number] Private Health Insurance Social History Date Type Detail Facility Start: 05-24-2022 Tobacco smoking stat [facility] Work Phone: History of tobacco use Current smoker [facility] Work Phone: History of tobacco use Cigarette Smoker [facility] [employer] Work Phone: Start: 05-24-2022 End: 05-09-2023 Alcohol intake Ex-drinker (finding) [facility] Work Phone: Start: 05-24-2022 History SDOH Alcohol Comment former ETOH [facility] Work Phone: Start: 1955 Sex Assigned At Not on file [facility] Work Phone: Start: 05-14-2022 End: 05-18-2023 Exposure to SARS-CoV-2 (event) Not sure [employer] Work Phone: Start: 05-24-2022 End: 05-09-2023 History of Social function [facility] Start: 05-24-2022 End: 05-09-2023 Tobacco use panel [facility] Start: 04-28-2023 End: 05-08-2023 Exposure to SARS-CoV-2 (event) Unable to assess [facility] Clinical Notes 05-24-2022 to 05-08-2023 Discharge InstructionsPerioperative Nursing Note - Vicky Aparicio RN - 05/08/2023 1:54 PM EDTPerioperative Nursing Note - Vicky Aparicio RN - 05/08/2023 1:54 PM EDTDischarge InstructionsAttachments Note Date & Type Note Facility 05-08-2023 Note Patient: Janeen Diaz Procedure Summary Date: 05/08/23 Room / Location: [facility] [address] ARCH [...] once all PACU criteria has been met. [facility] 05-08-2023 Note Patient: Janeen Diaz Procedure Summary Date: 05/08/23 Room / Location: [facility] / ARCH Gastroenterology [...] opportunity for questions and acknowledgement of understanding. [facility] 05-08-2023 Note Patient: Janeen Diaz Procedure Information Date/Time: 05/08/23 1300 Procedure: COLONOSCOPY FOR LOW RISK SCREENING Location: [facility] [address] / ARCH Gastroenterology Providers: Reji Chisholm MD EK05/2022 Sinus rhythm Normal [place] No ST or T wave changes Relevant [...] (Final) Narrative Ordered by an unspecified provider. [facility] 05-08-2023 Note Hpi noon communicati v3 [...] explained will be set up for colonoscopy [facility] 05-08-2023 Note DEPARTMENT OF SURGER Y OPERATIVE NOTE DATE OF PROCEDURE: 05/08/2023 ATTENDING SURGEON: Reji Joyce MD COLLEGE FOOTBALL COACH: 0 PREOPERATIVE DIAGNOSIS: rectal bleed POSTOPERATIVE DIAGNOSIS: [...] or other colonic changes No polyps tumors [facility] 05-08-2023 Hospital Discharg e instructions Chen [...] NEAREST EMERGENCY DEPARTMENT documented in this encounter [facility] 05-08-2023 Note Formatting of this n ote might be different from the original. spoke with Debbie nurse at [facility] to confirm meds, allergies, NPO status, medical directives, completion of prep, pt's A&O status, and how she transfers. Received verbal consent for procedure and anesthesia from pt's guardian Rebekah Gould. [facility] 05-08-2023 Miscellaneous Notes spoke with Debbie nurse at [facility] to confirm meds, allergies, NPO status, medical directives, completion of prep, pt's A&O status, and how she transfers. Received verbal consent for procedure and anesthesia from pt's guardian Rebekah Gould. Images from the original note were not included. DEPARTMENT OF SURGERY OPERATIVE NOTE DATE OF PROCEDURE: 05/08/2023 ATTENDING SURGEON: Reji Joyce MD COLLEGE FOOTBALL COACH: 0 PREOPERATIVE DIAGNOSIS: rectal bleed POSTOPERATIVE DIAGNOSIS: [...] No polyps tumors documented in this encounter [facility] 05-08-2023 History and physical note Hpi [...] explained will be set up for colonoscopy [employer] Work Phone: 05-08-2023 History and physical note [...] up for colonoscopy documented in this encounter [facility] 05-08-2023 Note Formatting of this n ote might be different from the original. Images from the original note were not included. DEPARTMENT OF SURGERY OPERATIVE NOTE DATE OF PROCEDURE: 05/08/2023 ATTENDING SURGEON: Reji Joyce MD COLLEGE FOOTBALL COACH: 0 PREOPERATIVE DIAGNOSIS: rectal bleed POSTOPERATIVE DIAGNOSIS: [...] or other colonic changes No polyps tumors [facility] 05-06-2023 Miscellaneous Notes Name of caller: [employer] Contact phone number: [phone] Relationship to Patient: Provider: Dr. Joyce Practice: [facility] Chief Complaint/Reason for Call: Elsy called in stating that the patient is having a colonoscopy on 05/08/23 and they need to know the prep so they can get it together for her by tomorrow. Please fax to [phone]. Best time of day caller can be reached: Any Patient advised that office/PCP has 24-48 business hours to return their call: No documented in this encounter [facility] 05-06-2023 Telephone encounter Note Name of caller: Elsy Contact phone number: [phone] Relationship to Patient: Provider: Dr. Joyce Practice: [facility] Chief Complaint/Reason for Call: Elsy called in stating that the patient is having a colonoscopy on 05/08/23 and they need to know the prep so they can get it together for her by tomorrow. Please fax to [phone]. Best time of day caller can be reached: Any Patient advised that office/PCP has 24-48 business hours to return their call: No [facility] 05-24-2022 Hospital Discharg e joshua Norris [...] be sent through Care Everywhere.Depression: Self Care (Maltese)documented in this encounter [facility] Work Phone: documented in this encounter [facility] Work Phone: Evaluation note* Diagnosis Multiple sclerosis (HCC) Multiple sclerosis Encounter for screening for malignant neoplasm of colon documented in this encounter [facility] note* Diagnosis Multiple sclerosis (HCC) Multiple sclerosis Encounter for screening for malignant neoplasm of colon documented in this encounter [facility] note* Diagnosis MS (multiple sclerosis) (HCC) Multiple sclerosis Altered mental status HLD (hyperlipidemia) Other and unspecified hyperlipidemia documented in this encounter [facility] note* Diagnosis Multiple sclerosis (HCC)- Primary Multiple sclerosis documented in this encounter [facility] Summary Purpose Family History No Family History Records FoundNo Family History Records FoundNo Family History Records FoundNo Family History Records FoundNo Family History Records FoundNo Family History Records Found Advance Directives No Advanced Directives Records FoundNo Advanced Directives Records FoundNo Advanced Directives Records FoundNo Advanced Directives Records FoundNo Advanced Directives Records FoundNo Advanced Directives Records Found Procedure Findings Note HNO ID: [id number] Author: Mansoor Barfield Service: ? Author Type: Physician Type: Brief Op Note Filed: 09/13/2020 8:25 AM Note Text: BRIEF OPERATIVE / PROCEDURE NOTE LOG ID: [id number] SURGERY/PROCEDURE DATE: 09/13/2020 INCISION/PROCEDURE START TIME: 7:49 AM INCISION CLOSE/PROCEDURE END TIME: 8:19 AM SURGEON(S)/PROCEDURALIST(S) AND COLLEGE FOOTBALL COACH(S): Surgeon(s) and Role: * Pillo Barfield - Primary No Additional Staff SURGERY/PROCEDURE(S): colonoscopy w polypectomy and bx ANESTHESIA: Monitored Anesthesia Care FINDINGS: polyps ESTIMATED BLOOD LOSS: 2 mls SPECIMENS: polyps/asc co COMPLICATIONS: None PRE-OP/PRE-PROCEDURE DIAGNOSIS: h/o polyps, diarrhea POST-OP/POST-PROCEDURE DIAGNOSIS: as above SIGNATURE: Pillo Barfield MD PATIENT NAME: Janeen Diaz DATE: September 13, 2020 TIME: 8:24 AM PAGER/CONTACT #: [phone] Note HNO ID: [id number] Author: Lilian Shipley (Turpentine Distiller) Jasson Service: General Internal Medicine Author Type: Nurse Practitioner Type: Discharge Summary Filed: 06/01/2020 5:00 PM Note Text: Attestation signed by Luc Layton at 06/02/2020 6:53 PM [facility] STAFF PHYSICIAN NOTE OF PERSONAL INVOLVEMENT IN CARE I have reviewed the discharge summary obtained and documented by the MOUNTING MACHINE OPERATOR and I personally participated in the qiu components. I have discussed the case and management of the patient's care. The following comments revise or confirm relevant qiu components of their note. Plan of care discussed with Care Management and MOUNTING MACHINE OPERATOR. CARE COORDINATION: Discharge Management: I personally spent greater than 30 minutes involved in the discharge management of this patient SIGNATURE: Luc Layton MD PAGER: DATE of SERVICE: June 02, 2020 TIME of SERVICE: 6:52 PM (more content not included)... Hospital Course Note HNO ID: [id number] Author: Lilian Shipley (Amy Spaulding Service: General Internal Medicine Author Type: Nurse Practitioner Type: Discharge Summary Filed: 06/01/2020 5:00 PM Note Text: Attestation signed by Luc Layton at 06/02/2020 6:53 PM [facility] STAFF PHYSICIAN NOTE OF PERSONAL INVOLVEMENT IN CARE I have reviewed the discharge summary obtained and documented by the MOUNTING MACHINE OPERATOR and I personally participated in the qiu components. I have discussed the case and management of the patient's care. The following comments revise or confirm relevant qiu components of their note. Plan of care discussed with Care Management and MOUNTING MACHINE OPERATOR. CARE COORDINATION: Discharge Management: I personally spent [...] Noble Hilton DO [address] [place] [address] Referral ID Status Reason Start Date Expiration Date V isits Requested Visits Authorized [id number] Authorized 04/16/2023 10/13/2023 1 1 Specialty Diagnoses / Procedures Referred By Contac t Referred To Contact Radiology Diagnoses Multiple sclerosis (HCC) Procedures MR brain w and wo contrast Noble Hilton DO [address] [place] [address] Referral ID Status Reason Start Date Expiration Date V isits Requested Visits Authorized [id number] Authorized 04/20/2023 10/17/2023 1 1 Referral ID Status Reason Start Date Expiration Date Visits Re quested Visits Authorized [id number] Closed 04/16/2023 10/13/2023 1 1 Referral ID Status Reason Start Date Expiration Date Visits Re quested Visits Authorized [id number] Closed 04/20/2023 10/17/2023 1 1 Additional Source Comments INFORMATION SOURCE (unrecogn ized section and content) DATE CREATED AUTHOR AUTHOR'S ORGANIZ ATION 05/25/2022 [facility] DATE CREATED AUTHOR AUTHOR'S ORGANIZ ATION 06/04/2022 [facility] DATE CREATED AUTHOR AUTHOR'S ORGANIZ ATION 08/28/2022 [facility] DATE CREATED AUTHOR AUTHOR'S ORGANIZ ATION 10/11/2022 [facility] DATE CREATED AUTHOR AUTHOR'S ORGANIZ ATION 05/19/2023 [facility] Reason for Visit (unrecogniz ed section and content) Specialty Diagnoses / Procedures Referred By Contac t Referred To Contact Radiology Diagnoses Multiple sclerosis (HCC) Procedures MR cervical spine w and wo contrast Noble Hilton, DO [address] [place] [address] Referral ID Status Reason Start Date Expiration Date V isits Requested Visits Authorized [id number] Authorized 04/16/2023 10/13/2023 1 1 Specialty Diagnoses / Procedures Referred By Contac t Referred To Contact Radiology Diagnoses Multiple sclerosis (HCC) Procedures MR brain w and wo contrast Noble Hilton, DO [address] [place] [address] Referral ID Status Reason Start Date Expiration Date V isits Requested Visits Authorized [id number] Authorized 04/20/2023 10/17/2023 1 1 Specialty Diagnoses / Procedures Referred By Contac t Referred To Contact Diagnoses Encounter for screening for malignant neoplasm of colon Encounter for screening for malignant neoplasm of colon [Z12.11] Procedures FL COLON CA SCRN NOT HI RSK IND COLONOSCOPY FOR LOW RISK SCREENING Reji Joyce MD [address] [facility] [place] [address] [facility] [address] [place] [address] Referral ID Status Reason Start Date Expiration Date Visits Re quested Visits Authorized [id number] 1 1 Referral ID Status Reason Start Date Expiration Date Visits Re quested Visits Authorized [id number] Closed 04/20/2023 10/17/2023 1 1 Referral ID Status Reason Start Date Expiration Date Visits Re quested Visits Authorized [id number] Closed 04/16/2023 10/13/2023 1 1 Reason Onset Date Comments Other 05/06/2023 Care Teams (unrecognized sec tion and content) Sleeve Tailor Relationship Specialty Start Date End Date Shakila Flower [address] [place] [address] [address] [place] [address] PCP - General 11/04/21 Sleeve Tailor Relationship Specialty Start Date End Date Shakila Flower [address] [place] [address] [address] [place] [address] PCP - General 11/04/21 Sleeve Tailor Relationship Specialty Start Date End Date Shakila Flower [address] [place] [address] [address] [place] [address] PCP - General 11/04/21 Sleeve Tailor Relationship Specialty Start Date End Date Shakila Flower [address] [place] [address] [address] [place] [address] PCP - General 11/04/21 Sleeve Tailor Relationship Specialty Start Date End Date Shakila Flower [address] [place] [address] [address] [place] [address] PCP - General 11/04/21 Sleeve Tailor Relationship Specialty Start Date End Date Shakila Flower [address] [place] [address] [address] [place] [address] PCP - General 11/04/21 Sleeve Tailor Relationship Specialty Start Date End Date Shakila Flower [address] [place] [address] [address] [place] [address] PCP - General 11/04/21 Scheduled Active and [...] BE BASED ON THE PRIMARY CLINICAL RECORDS. [facility] provides no warranty or guarantee of the accuracy or completeness of information in this document.
[2024-01-01 09:04] LABS: T4 Total, Thyroxin 8.1 ug/dL (4.8-13.9); Thyroid Stim Hormone (TSH) 1.52 uIU/mL (0.358-3.74)
[2024-01-01 09:17] LABS: T3 Total - Triiodothyronine 0.89 ng/mL (0.6-1.81)
== END ==
LOC: OLS.ACW100 05:00
PROVIDERS: Visit Provider Family Medicine
DX: R53.1 Weakness (principal)
CPT/HCPCS: 36415; 84436; 84443; 84480